=== PATIENT | female | born 1940 | race Caucasian/White ===

== ENCOUNTER 2017-03-16 00:24 | Inpatient (IN) | payer OTHER ==
--- NOTE | 2017-03-16 00:35 | PDOC ---
History of Present Illness - General History Source: EMS Exam Limitations: Dementia - History of Present Illness Initial Comments: 76 yo F with a PMHx of COPD, asthma, hypertension, dementia [facility] s/p witnessed fall at 9 PM. As per EMS, the fall occurred when patient was being transferred from chair to bed. As per EMS, patient received tylenol at 10. <Trixie Dyer - Last Filed: 03/16/17 00:39> <Rebekah Lemons - Last Filed: 03/16/17 02:40> - General Stated Complaint: FALL Time Seen by Provider: 03/16/17 00:32 Past History <Trixie Dyer - Last Filed: 03/16/17 00:39> - Past Medical History Asthma: Yes Cardiac Disorders: Yes (afib, CAD) Diabetes: Yes (GERD) HTN: Yes Hypercholesterolemia: Yes - Surgical History Cholecystectomy: Yes Orthopedic Surgery: Yes - Immunization History Immunization Up to Date: Yes - Psycho/Social/Smoking Cessation Hx Anxiety: No Suicidal Ideation: No Smoking History: Unknown if ever smoked Have you smoked in the past 12 months: No Hx Alcohol Use: No Drug/Substance Use Hx: No Substance Use Type: None Hx Substance Use Treatment: No <Rebekah Lemons - Last Filed: 03/16/17 02:40> - Past Medical History Allergies/Adverse Reactions: Allergies Allergy/AdvReac Type Severity Reaction Status Date / Time ibuprofen [From Motrin] Allergy Verified 03/16/17 00:51 Home Medications: Ambulatory Orders Apixaban [Eliquis] 5 mg PO DAILY 08/13/16 Atorvastatin Ca [Lipitor] 10 mg PO HS 08/13/16 Cholecalciferol (Vitamin D3) [Vitamin D3] 1,000 unit PO DAILY 08/13/16 Cyanocobalamin (Vitamin B-12) [Vitamin B12] 500 mcg PO DAILY 08/13/16 Divalproex [Depakote -] 125 mg PO BID 08/13/16 Folic Acid 1 mg PO DAILY 08/13/16 Furosemide [Lasix -] 20 mg PO DAILY 08/13/16 Levothyroxine [Synthroid -] 75 mcg PO DAILY 08/13/16 Omeprazole 20 mg PO DAILY 08/13/16 Prednisone [Deltasone -] 40 mg PO DAILY #8 tablet 08/13/16 Verapamil HCl [Verapamil ER] 120 mg PO DAILY 08/13/16 Review of Systems - Review of Systems Able to Perform ROS?: No (Patient has dementia. ) <Trixie Dyer - Last Filed: 03/16/17 00:39> *Physical Exam - Physical Exam Comments: GENERAL: Well developed, well nourished. Demented. No acute distress. HEENT: Normocephalic, atraumatic. PERRLA, EOMI. No conjunctival pallor. Sclera are non- icteric. Moist mucous membranes. Oropharynx is clear. NECK: Supple. Full ROM. No JVD. Carotid pulses 2+ and symmetric, without bruits. No thyromegaly. No lymphadenopathy. CARDIOVASCULAR: Regular rate and rhythm. No murmurs, rubs, or gallops. Distal pulses are 2+ and symmetric. PULMONARY: No evidence of respiratory distress. Lungs clear to auscultation bilaterally. No wheezing, rales or rhonchi. ABDOMINAL: Soft. Non-tender. Non-distended. No rebound or guarding. No organomegaly. Normoactive bowel sounds. MUSCULOSKELETAL Normal range of motion at all joints. No bony deformities or tenderness. No CVA tenderness. EXTREMITIES: No cyanosis. No clubbing. R leg externally rotated and foreshortened. Ecchymosis around her R knee and anterior leg. No calf tenderness. SKIN: Warm and dry. Normal capillary refill. No rashes. No jaundice. NEUROLOGICAL: No gross neurological deficits. PSYCHIATRIC: Cooperative. Good eye contact. Appropriate mood and affect. <Trixie Dyer - Last Filed: 03/16/17 00:39> ED Treatment Course - LABORATORY CBC & Chemistry Diagram: 03/16/17 01:32 03/16/17 01:32 <Rebekah Lemons - Last Filed: 03/16/17 02:40> Medical Decision Making - Medical Decision Making 03/16/17 02:22 76-year-old female brought in by ambulance from [facility] . [facility] as they were transferring the patient from the bed to wheelchair . Therefore it was a witnessed fall Patient is alert, primarily Occitan-speaking,history of dementia Right leg is foreshortened and externally rotated. There are good DP and PT pulses. Sensation is intact. The leg is warm. Capillary refill is less than 2 seconds Past medical history significant for dementia, CHF, diastolic, hypertension, COPD, paroxysmal A. fib, diabetes, migraines, hypothyroidism She has a previous fracture of her left hip in the past X-ray does show a right intertrochanteric hip fracture and Dr. Jose Carvalho was alerted. Patient will be admitted to [facility] -pt is on ELIQUIS and ct scan of head has been ordered and signed out to Dr Carvalho 03/16/17 02:38 <Rebekah Lemons - Last Filed: 03/16/17 02:40> *DC/Admit/Observation/Transfer - Attestations Scribe Attestion: Documentation prepared by Trixie Dyer, acting as biomedical instrument technician for Rebekah Lemons MD/DO. <Trixie Dyer - Last Filed: 03/16/17 00:39> - Discharge Dispostion Admit: Yes <Rebekah Lemons - Last Filed: 03/16/17 02:40> Diagnosis at time of Disposition: Hip fracture Qualifiers: Encounter type: initial encounter Fracture type: closed Laterality: right Qualified Code(s): S72.001A - Fracture of unspecified part of neck of right femur, initial encounter for closed fracture Type II diabetes mellitus Qualifiers: Diabetes mellitus complication status: with hyperglycemia Diabetes mellitus managed care provider insulin use: without managed care provider use Qualified Code(s): E11.65 - Type 2 diabetes mellitus with hyperglycemia - Referrals Referrals: Dex Ortiz MD [Primary Care Provider] -
[2017-03-16] MEDS ORDERED: morphine CARPU-JECT 2 MG/1 ML DISP.SYRIN IVPUSH ONE ×3 (00:42→06:21)
[2017-03-16 00:54] VITALS: BMI 26.5
[2017-03-16] MEDS ORDERED: morphine CARPU-JECT 2 MG/1 ML DISP.SYRIN ONE ×4 (01:00→18:44)
[2017-03-16 01:43] LABS: BASOPHIL 0.8 % (0-2.0); EOSINOPHIL 1.6 % (0-4.5); MCH 31.7 pg (25.7-33.7); MCHC 33.4 g/dl (32.0-36.0); MEAN CELL VOLUME 94.7 fl (80-96); MEAN PLT VOLUME 8.2 fl (7.5-11.1); NEUTROPHILS 80.1 % (42.8-82.8); PLATELET COUNT 201 K/MM3 (134-434); RDW 13.7 % (11.6-15.6); WHITE BLOOD COUNT 10.1 K/mm3 (4.0-10.0)
[2017-03-16 01:55] LABS: INR 1.24 (0.82-1.09); PROTHROMBIN TIME (PATIENT) 13.7 SEC (9.98-11.88)
[2017-03-16 02:05] LABS: ALK PHOS 125 U/L (45-117); ANION GAP 11 (8-16); BILIRUBIN,TOTAL 0.3 mg/dL (0.2-1.0); CALCIUM 8.6 mg/dL (8.5-10.1); CO2 30 mmol/L (21-32); CREATININE 0.5 mg/dL (0.55-1.02); GLUCOSE,RANDOM 130 mg/dL (74-106); SGOT/AST 14 U/L (15-37); SGPT/ALT 16 U/L (12-78)
[2017-03-16 02:16] LABS: TROPONIN I < 0.02 ng/ml (0.00-0.05)
[2017-03-16] MEDS ORDERED: ONDANSETRON 4 MG/2 ML VIAL IVPUSH STA (05:12)
[2017-03-16] MEDS ORDERED: ONDANSETRON 4 MG/2 ML VIAL ONE (05:22)
[2017-03-16 05:32] LABS: URINE APPEARANCE CLEAR; URINE BILIRUBIN NEGATIVE (NEGATIVE); URINE BLOOD NEGATIVE (NEGATIVE); URINE COLOR LTYELLOW; URINE GLUCOSE (UA) NEGATIVE (NEGATIVE); URINE KETONE NEGATIVE (NEGATIVE); URINE LEUK ESTERASE NEGATIVE (NEGATIVE); URINE NITRITE NEGATIVE (NEGATIVE); URINE PROTEIN NEGATIVE (NEGATIVE); URINE UROBILINOGEN NEGATIVE E.U./dl (0.2-1.0)
[2017-03-16] MEDS ORDERED: oxyCODONE HCL 5 MG TABLET ONE (06:04)
[2017-03-16] MEDS: oxyCODONE HCL 5 MG TABLET PO PRN (06:08)
[2017-03-16] MEDS ORDERED: morphine CARPU-JECT 4 MG/1 ML DISP.SYRIN ONE (06:23)
[2017-03-16] MEDS: SODIUM CHLORIDE 1,000 ML IV SCH ×2 (06:33→18:25)
[2017-03-16] MEDS ORDERED: LORazepam 0.5 MG TABLET PO PRN (07:44)
[2017-03-16] MEDS ORDERED: ACETAMINOPHEN 325 MG TABLET (FP) PO PRN (07:45)
[2017-03-16] MEDS: INSULIN SLIDING SCALE (NOVOLOG) 1 VIAL SQ SCH ×2 (09:59→18:31)
[2017-03-16] MEDS ORDERED: PATIENT'S OWN MEDICATION (NON-FORMULARY) (Umeclidinium Bromide [Incruse Ellipta] 62.5 MCG) IH SCH (10:00)
[2017-03-16] MEDS ORDERED: FUROSEMIDE 40 MG TABLET (FP) PO SCH (10:00)
[2017-03-16] MEDS ORDERED: LISINOPRIL 5 MG TABLET (FP) PO SCH (10:00)
[2017-03-16] MEDS: DOCUSATE SODIUM 100 MG CAPSULE (FP) PO SCH (10:01)
[2017-03-16] MEDS: DIVALPROEX SODIUM 125 MG TABLET E.C. (FP) PO SCH (10:01)
[2017-03-16] MEDS: predniSONE 5 MG TABLET (UD) PO SCH (10:01)
[2017-03-16] MEDS: guaiFENesin 200 MG/10 ML 10 ML UNIT-DOSE CUPS PO SCH (10:02)
[2017-03-16] MEDS: PANTOPRAZOLE 20 MG TABLET (FP) PO SCH (10:02)
[2017-03-16] MEDS: LEVOTHYROXINE NA 75 MCG TABLET (FP) PO SCH (10:03)
[2017-03-16] MEDS: MAG HYDROX/AL HYDROX/SIMETH 30 ML UNIT-DOSE CUP PO SCH (10:05)
--- NOTE | 2017-03-16 10:54 | CONSULT ---
Consult - text type - Consultation Consultation Note: FULL ER CONSULT DICTATED IMP: RIGHT FEMORAL NECK FRACTURE ON ELOQUIS PLAN: TO OR ON TUESDAY FOR RIGHT HIP HEMIARTHROPLASTY
--- NOTE | 2017-03-16 11:24 | HP ---
Admitting History and Physical - Primary Care Physician PCP: Dex Ortiz - Admission Chief Complaint: My leg hurts History of Present Illness: Ms Franklin is a very pleasant 76 year old female who presents from [facility] s/p fall. She says she was up walking and fell. She did not hit her head and she did not pass out. She says she has severe pain in her right leg. She denies fevers, chills, lightheadedness, dizziness, shortness of breath, abdominal pain, nausea, vomiting, diarrhea, constipation, difficulty or pain on urination. She says she has chest pain sometimes. She said the last time she felt it was last week. It is located in the right side of her chest, sharp, and felt with deep inspiration. I noted swelling of both her legs on exam and she said that it is chronic. Medical record from [facility] says patient accidentally fell when being transferred from a sitting position to the bed. 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 Cardiovascular: Yes: AFIB, CAD (unclear), HTN, Hyperlipdemia Pulmonary: Yes: Asthma - Smoking History Smoking history: Unknown if ever smoked Have you smoked in the past 12 months: No - Alcohol/Substance Use Hx Alcohol Use: No History of Substance Use: reports: None - Social History ADL: Support Services History of Recent Travel: No Home Medications - Allergies Allergies/Adverse Reactions: Allergies Allergy/AdvReac Type Severity Reaction Status Date / Time ibuprofen [From Motrin] Allergy Verified 03/16/17 00:51 - Home Medications Home Medications: Ambulatory Orders Apixaban [Eliquis] 2.5 mg PO DAILY 08/13/16 Atorvastatin Ca [Lipitor] 10 mg PO HS 08/13/16 Divalproex [Depakote -] 125 mg PO BID 08/13/16 Furosemide [Lasix -] 40 mg PO DAILY 08/13/16 Levothyroxine [Synthroid -] 75 mcg PO DAILY 08/13/16 Omeprazole 20 mg PO DAILY 08/13/16 Acetaminophen [Tylenol] 325 mg PO PRN 03/16/17 Albuterol 2.5/Ipratropium 0.5 [Duoneb -] 1 neb IH QID 03/16/17 Docusate Sodium 100 mg PO DAILY 03/16/17 Guaifenesin 100 mg PO DAILY 03/16/17 Insulin Glargine,Hum.rec.anlog [Lantus Solostar PEN (NF)] 0 units SQ HS Insulin Lispro [Humalog] 100 unit SQ DAILY MDD sliding scale 03/16/17 Levothyroxine [Synthroid -] 75 mcg PO DAILY 03/16/17 Lisinopril [Zestril] 2.5 mg PO DAILY 03/16/17 Lorazepam 0.5 mg PO PRN 03/16/17 Mag Hydrox/Al Hydrox/Simeth [Alpa-Lanta Liquid] 355 ml PO DAILY 03/16/17 Menthol [Bengay Ultra Strength] 1 each TP DAILY 03/16/17 Prednisone [Deltasone -] 2.5 mg PO DAILY 03/16/17 Tramadol HCl 50 mg PO TID 03/16/17 Umeclidinium [place] [Incruse Ellipta] 62.5 mcg IH DAILY 03/16/17 Family Disease History - Family Disease History Family History: Unable to Obtain Review of Systems Findings/Remarks: Full review of systems obtained, as per HPI and otherwise negative Physical Examination Vital Signs: Vital Signs Temperature 98.0 F 03/16/17 09:40 Pulse Rate 89 03/16/17 09:40 Respiratory Rate 18 03/16/17 09:40 Blood Pressure 110/58 03/16/17 09:40 O2 Sat by Pulse Oximetry (%) 100 03/16/17 04:00 Constitutional: Yes: Well Nourished, No Distress, Calm Eyes: Yes: Conjunctiva Clear, PERRL HENT: Yes: Atraumatic, Normocephalic Cardiovascular: Yes: Regular Rate and Rhythm. No: Gallop, Murmur, Rub Respiratory: Yes: Regular, CTA Bilaterally. No: Rales, Rhonchi, Wheezes Gastrointestinal: Yes: Normal Bowel Sounds, Soft. No: Distention, Tenderness Extremities: Yes: Other (RLE pain) Edema: Yes Edema: LLE: Trace, RLE: Trace Labs: Laboratory Results - last 24 hr 03/16/17 03/16/17 03/16/17 01:32 01:32 01:32 WBC 10.1 H D RBC 3.40 L Hgb 10.8 D Hct 32.2 L D MCV 94.7 MCHC 33.4 RDW 13.7 Plt Count 201 MPV 8.2 Neutrophils % 80.1 Lymphocytes % 9.4 D Monocytes % 8.1 Eosinophils % 1.6 Basophils % 0.8 INR Sodium 136 Potassium 4.3 Chloride 95 L Carbon Dioxide 30 Anion Gap 11 BUN 23 H Creatinine 0.5 L Creat Clearance w eGFR > 60 POC Glucometer Random Glucose 130 H D Calcium 8.6 Total Bilirubin 0.3 D AST 14 L D ALT 16 Alkaline Phosphatase 125 H D Creatine Kinase 20 L Troponin I < 0.02 Total Protein 6.0 L Albumin 3.0 L Urine Color Urine Appearance Urine pH Ur Specific Cost Urine Protein Urine Glucose (UA) Urine Ketones Urine Blood Urine Nitrite Urine Bilirubin Urine Urobilinogen Ur Leukocyte Esterase Blood Type Antibody Screen 03/16/17 03/16/17 03/16/17 01:32 01:32 03:52 WBC RBC Hgb Hct MCV MCHC RDW Plt Count MPV Neutrophils % Lymphocytes % Monocytes % Eosinophils % Basophils % INR 1.24 H Sodium Potassium Chloride Carbon Dioxide Anion Gap BUN Creatinine Creat Clearance w eGFR POC Glucometer [id number] Random Glucose Calcium Total Bilirubin AST ALT Alkaline Phosphatase Creatine Kinase Troponin I Total Protein Albumin Urine Color Urine Appearance Urine pH Ur Specific Cost Urine Protein Urine Glucose (UA) Urine Ketones Urine Blood Urine Nitrite Urine Bilirubin Urine Urobilinogen Ur Leukocyte Esterase Blood Type B POSITIVE Antibody Screen Negative 03/16/17 03/16/17 05:12 09:57 WBC RBC Hgb Hct MCV MCHC RDW Plt Count MPV Neutrophils % Lymphocytes % Monocytes % Eosinophils % Basophils % INR Sodium Potassium Chloride Carbon Dioxide Anion Gap BUN Creatinine Creat Clearance w eGFR POC Glucometer 98.99851 Random Glucose Calcium Total Bilirubin AST ALT Alkaline Phosphatase Creatine Kinase Troponin I Total Protein Albumin Urine Color Ltyellow Urine Appearance Clear Urine pH 6.0 Ur Specific Cost 1.015 Urine Protein Negative Urine Glucose (UA) Negative Urine Ketones Negative Urine Blood Negative Urine Nitrite Negative Urine Bilirubin Negative Urine Urobilinogen Negative Ur Leukocyte Esterase Negative Blood Type Antibody Screen Imaging - Results Chest X-ray: Report Reviewed, Image Reviewed Cat Scan: Report Reviewed Problem List - Problems (1) Hip fracture Assessment/Plan: -secondary to mechanical fall -seen by ortho, planning for surgery on Tuesday Code(s): S72.009A - FRACTURE OF UNSP PART OF NECK OF UNSP FEMUR, INIT Qualifiers: Encounter type: initial encounter Fracture type: closed Laterality : right Qualified Code(s): S72.001A - Fracture of unspecified part of neck of right femur, initial encounter for closed fracture (2) Type II diabetes mellitus Assessment/Plan: -diabetic diet -FSBS and SSI Code(s): E11.9 - TYPE 2 DIABETES MELLITUS WITHOUT COMPLICATIONS Qualifiers: Diabetes mellitus complication status: with hyperglycemia Diabetes mellitus usp insulin use: without rodent exterminator use Qualified Code(s): E11.65 - Type 2 diabetes mellitus with hyperglycemia; Z79.4 - alf (current ) use of insulin (3) GERD (gastroesophageal reflux disease) Assessment/Plan: -continue low dose protonix Code(s): K21.9 - GASTRO-ESOPHAGEAL REFLUX DISEASE WITHOUT ESOPHAGITIS (4) HLD (hyperlipidemia) Assessment/Plan: -continue lipitor Code(s): E78.5 - HYPERLIPIDEMIA, UNSPECIFIED (5) Atrial fibrillation Assessment/Plan: -sounds in sinus rhythm on exam -EKG ordered, follow up -holding eliquis in plans for surgery Code(s): I48.91 - UNSPECIFIED ATRIAL FIBRILLATION Qualifiers: Atrial fibrillation type: chronic Qualified Code(s): I48.2 - Chronic atrial fibrillation (6) CAD (coronary artery disease) Assessment/Plan: -with chest pain that sounds atypical -follow up ordered EKG -check second set of cardiac enzymes -consult cardiology -continue home regimen Code(s): I25.10 - ATHSCL HEART DISEASE OF [place] CORONARY ARTERY W/O ANG PCTRS (7) Hypothyroidism Assessment/Plan: -continue synthroid Code(s): E03.9 - HYPOTHYROIDISM, UNSPECIFIED
--- NOTE | 2017-03-16 13:06 | EKG ---
Test Reason : Blood Pressure : / mmHG Vent. Rate : 094 BPM Atrial Rate : 094 BPM P-R Int : 140 ms QRS Dur : 078 ms QT Int : 358 ms P-R-T Axes : 080 -41 064 degrees QTc Int : 447 ms SINUS RHYTHM WITH OCCASIONAL PREMATURE VENTRICULAR COMPLEXES LEFT AXIS DEVIATION PULMONARY DISEASE PATTERN ABNORMAL ECG WHEN COMPARED WITH ECG OF 13-AUG-2016 12:14, PREMATURE VENTRICULAR COMPLEXES ARE NOW PRESENT INCOMPLETE RIGHT BUNDLE BRANCH BLOCK IS NO LONGER PRESENT BORDERLINE CRITERIA FOR ANTEROSEPTAL INFARCT ARE NO LONGER PRESENT Confirmed by JERRICA MALDONADO, ANNIE ([id number]) on 03/16/2017 1:06:08 PM Referred By: Confirmed By:ANNIE BECERRIL MD
--- NOTE | 2017-03-16 14:16 | CONS ---
DATE OF CONSULTATION: 03/16/2017 HISTORY OF PRESENT ILLNESS: Patient is a 76-year-old female status post [facility], injuring her right hip. Patient is on Eliquis. Was transferred to [facility] where CAT scan of the head was done and x-rays of the hip which revealed a right displaced femoral neck fracture. X-rays also revealed an old left femoral neck fracture which was fixated with multiple cannulated screws. PHYSICAL EXAMINATION:Extremities: Patient's right lower extremity showing externally rotated. Marked increased pain with range of motion of the hip. Good motion of knee, ankle, and toes. Calf is soft, nontender. Pulses 2+. Neurovascularly intact. IMAGING: X-rays which I reviewed showed a displaced right femoral neck fracture. IMPRESSION: Right displaced femoral neck fracture. RECOMMENDATIONS: Patient is on Eliquis and ate today. Therefore, the procedure will not be performed today. She will get optimized by her medical doctor and we will perform her right hip hemiarthroplasty in the upcoming days. Patient is a [place] Citizen-speaking patient with a positive history of dementia. I will contact the legal medical proxy to obtain consent for this procedure. FABIENNE CROWDER M.D. [id number]
[2017-03-16] MEDS: morphine CARPU-JECT 2 MG/1 ML DISP.SYRIN IVPUSH PRN ×3 (14:50→22:20)
[2017-03-16 14:54] LABS: TROPONIN I < 0.02 ng/ml (0.00-0.05)
--- NOTE | 2017-03-16 18:12 | CON.CARD ---
Cardiology Consult (text) - Consultation Consultation Note: CC: fall 76 yo with h/o afib on eliquis, htn, hl, diastolic chf on po lasix, iddm, hypthyroid, copd, dementia who presents from [facility] s/p fall c/b hip fracture. Patient recalls fall, states was mechanical fall. Consistent with history in chart. no palps, dizziness, syncope. no cp, sob, orthopnea, pnd, le edema, bleeding, transient neurologic symptoms No recent fevers, chills, sweats, abdominal pain, nausea, vomiting, diarrhea, por po intake. + lbp. Unable to walk a flight of stairs at baseline. pmhx/PShx: per hpi social work: former smoker fam hx: + htn ros: per hpi Ambulatory Orders Apixaban [Eliquis] 2.5 mg PO DAILY 08/13/16 Atorvastatin Ca [Lipitor] 10 mg PO HS 08/13/16 Divalproex [Depakote -] 125 mg PO BID 08/13/16 Furosemide [Lasix -] 40 mg PO DAILY 08/13/16 Levothyroxine [Synthroid -] 75 mcg PO DAILY 08/13/16 Omeprazole 20 mg PO DAILY 08/13/16 Acetaminophen [Tylenol] 325 mg PO PRN 03/16/17 Albuterol 2.5/Ipratropium 0.5 [Duoneb -] 1 neb IH QID 03/16/17 Docusate Sodium 100 mg PO DAILY 03/16/17 Guaifenesin 100 mg PO DAILY 03/16/17 Insulin Glargine,Hum.rec.anlog [Lantus Solostar PEN (NF)] 0 units SQ HS Insulin Lispro [Humalog] 100 unit SQ DAILY MDD sliding scale 03/16/17 Levothyroxine [Synthroid -] 75 mcg PO DAILY 03/16/17 Lisinopril [Zestril] 2.5 mg PO DAILY 03/16/17 Lorazepam 0.5 mg PO PRN 03/16/17 Mag Hydrox/Al Hydrox/Simeth [Alpa-Lanta Liquid] 355 ml PO DAILY 03/16/17 Menthol [Bengay Ultra Strength] 1 each TP DAILY 03/16/17 Prednisone [Deltasone -] 2.5 mg PO DAILY 03/16/17 Tramadol HCl 50 mg PO TID 03/16/17 Umeclidinium [place] [Incruse Ellipta] 62.5 mcg IH DAILY 03/16/17 Current Medications Acetaminophen (Tylenol -) 325 mg PO PRN [facility] Al Hydroxide/Mg Hydroxide (Mylanta Oral Suspension -) 30 ml PO DAILY [facility] Last Admin: 03/16/17 10:05 Dose: Not Given Albuterol/Ipratropium (Duoneb -) 1 amp NEB QIDR [facility] Atorvastatin Calcium (Lipitor -) 10 mg PO HS [facility] Divalproex Sodium (Depakote -) 125 mg PO BID [facility] Last Admin: 03/16/17 10:01 Dose: 125 mg Docusate Sodium (Colace -) 100 mg PO DAILY [facility] Last Admin: 03/16/17 10:01 Dose: Not Given Furosemide (Lasix -) 40 mg PO DAILY [facility] Last Admin: 03/16/17 10:05 Dose: 40 mg Guaifenesin (Robitussin -) 10 ml PO DAILY [facility] Last Admin: 03/16/17 10:02 Dose: 10 ml Sodium Chloride (Normal Saline -) 1,000 mls @ 75 mls/hr IV ASDIR [facility] Last Admin: 03/16/17 06:33 Dose: 75 mls/hr Insulin Aspart (Novolog Vial Sliding Scale -) 1 vial SQ ACHS [facility] PRN Reason: Protocol Last Admin: 03/16/17 09:59 Dose: Not Given Levothyroxine Sodium (Synthroid -) 75 mcg PO ACBK [facility] Last Admin: 03/16/17 10:03 Dose: 75 mcg Lisinopril (Prinivil) 2.5 mg PO DAILY [facility] Last Admin: 03/16/17 10:05 Dose: 2.5 mg Lorazepam (Ativan -) 0.5 mg PO Q6H PRN PRN Reason: ANXIETY Morphine Sulfate (Morphine Injection -) 2 mg IVPUSH Q4H PRN PRN Reason: PAIN Last Admin: 03/16/17 14:50 Dose: 2 mg Non-Formulary Medication (Umeclidinium [place] [Incruse Ellipta]) 62.5 mcg IH DAILY [facility] Oxycodone HCl (Roxicodone -) 5 mg PO Q6H PRN PRN Reason: PAIN Last Admin: 03/16/17 06:08 Dose: 5 mg Pantoprazole Sodium (Protonix -) 20 mg PO DAILY [facility] Last Admin: 03/16/17 10:02 Dose: 20 mg Prednisone (Deltasone -) 2.5 mg PO DAILY [facility] Last Admin: 03/16/17 10:01 Dose: 2.5 mg Vital Signs - 24 hr 03/16/17 03/16/17 03/16/17 00:51 04:00 06:33 Temperature 97.5 F L Pulse Rate 100 H Pulse Rate [ 88 Right] Respiratory 14 20 Rate Blood Pressure 104/59 134/90 Blood Pressure 105/56 [Right] O2 Sat by Pulse 100 100 Oximetry (%) 03/16/17 03/16/17 03/16/17 06:34 09:40 10:00 Temperature 98.0 F 98.0 F Pulse Rate 89 89 Pulse Rate [ 93 H Right] Respiratory 20 18 18 Rate Blood Pressure 110/58 110/58 Blood Pressure 134/90 [Right] O2 Sat by Pulse 100 Oximetry (%) 03/16/17 14:00 Temperature 98.0 F Pulse Rate 86 Pulse Rate [ Right] Respiratory 19 Rate Blood Pressure 113/67 Blood Pressure [Right] O2 Sat by Pulse Oximetry (%) Intake & Output 03/14/17 03/15/17 03/16/17 03/17/17 07:59 07:59 07:59 07:59 Output Total 900 Balance -900 Weight 145 lb 145 lb nad, calm. lying flat jvd flat, neck supple ctab, nl effort rrr nl s1, s2 no mrg + bs soft nt nd ext with trace edema. no cyanosis or clubbing no carotid bruit no jaundice, diaphoresis CBC, BMP 03/16/17 01:32 03/16/17 01:32 Laboratory Tests 03/16/17 03/16/17 03/16/17 01:32 01:32 01:32 INR 1.24 H Total Bilirubin 0.3 D AST 14 L D ALT 16 Alkaline Phosphatase 125 H D Creatine Kinase 20 L Troponin I < 0.02 Albumin 3.0 L 03/16/17 13:45 INR Total Bilirubin AST ALT Alkaline Phosphatase Creatine Kinase 39 Troponin I < 0.02 Albumin EKG: sr with pvc. LAD. no acute ischemic changes. head CT: no acute pathology. Carotid Doppler 03/2015: no sig stenosis Echo 09/2014: normal LV/RV function, no sig valv abn Cath 12/2012: non-obstr cors 76 yo with h/o afib on eliquis, htn, hl, diastolic chf on po lasix, iddm, hypthyroid, copd, dementia who presents from [facility] [place] s/p fall c/b hip fracture. Pre-op clearance - No active cardiac issues. No need for further CV testing prior to surgyer. RCRI 2 with poor functional status. patient with intermediate-high estimated risk of siomara-operative CV events. HTN - currently bp running low. patient on low dose verapamil for rate control as outpatient per office notes. Also listed as being on low dose lisinopril and lasix. - Would hold lisinopril for now. Monitor rate off of AV shea blockade. Resume low dose verapamil if needed. Hold IVF and resume low dose IV lasix at lower dose as mentioned below dchf - no overt signs of volume overload. Would hold IVF and resume lasix at lower dose (20 qod) until bp improves. Low threshold to stop altogether. afib - currently in SR on EKG. Monitor for need to add back verapamil - AC with eliquis. Ok to hold without bridging for surgery. HL - on statin
[2017-03-16] MEDS: ATORVASTATIN CA 10 MG TABLET (FP) PO SCH (22:20)
[2017-03-17] MEDS: ALBUTEROL SO4 2.5/IPRATROPIUM 0.5 INH SOL 3 ML VIAL.NEB. NEB SCH ×5 (00:03→23:06)
[2017-03-17] MEDS: DIVALPROEX SODIUM 125 MG TABLET E.C. (FP) PO SCH ×3 (00:13→22:04)
[2017-03-17] MEDS: INSULIN SLIDING SCALE (NOVOLOG) 1 VIAL SQ SCH ×5 (00:18→22:06)
[2017-03-17] MEDS: oxyCODONE HCL 5 MG TABLET PO PRN ×2 (00:18→19:50)
[2017-03-17] MEDS: LEVOTHYROXINE NA 75 MCG TABLET (FP) PO SCH (06:49)
[2017-03-17] MEDS: morphine CARPU-JECT 2 MG/1 ML DISP.SYRIN IVPUSH PRN ×3 (06:49→16:26)
[2017-03-17 08:21] LABS: BASOPHIL 0.6 % (0-2.0); EOSINOPHIL 0.5 % (0-4.5); MCH 31.8 pg (25.7-33.7); MCHC 33.7 g/dl (32.0-36.0); MEAN CELL VOLUME 94.3 fl (80-96); MEAN PLT VOLUME 8.3 fl (7.5-11.1); NEUTROPHILS 81.3 % (42.8-82.8); PLATELET COUNT 171 K/MM3 (134-434); RDW 13.8 % (11.6-15.6); WHITE BLOOD COUNT 8.2 K/mm3 (4.0-10.0)
--- NOTE | 2017-03-17 09:16 | PN ---
Progress Note (short form) - Note Progress Note: Pt is a 76 yo F s/p fall with a displaced right hip hemiarthroplasty. She last took Eliquis on Tuesday. She is cleared by cardiology. Trying to contact Health Proxy. Plan We need final medical clearance We will con't to try to contact her Health Proxy NPO after midnight tonight She is on the OR schedule for a right hip hemiarthroplasty Tuesday
[2017-03-17 09:24] LABS: ALBUMIN 3.2 g/dl (3.4-5.0); ALK PHOS 135 U/L (45-117); ANION GAP 9 (8-16); BILIRUBIN,TOTAL 0.8 mg/dL (0.2-1.0); CALCIUM 9.3 mg/dL (8.5-10.1); CO2 34 mmol/L (21-32); CREATININE 0.5 mg/dL (0.55-1.02); GLUCOSE,RANDOM 116 mg/dL (74-106); MAGNESIUM 2.1 mg/dL (1.8-2.4); SGOT/AST 43 U/L (15-37); SGPT/ALT 62 U/L (12-78); TOT PROT 6.5 g/dl (6.4-8.2)
[2017-03-17] MEDS ORDERED: PT OWN MED DRAWER 7, Y5N ONE ×2 (09:45→21:38)
[2017-03-17] MEDS: DOCUSATE SODIUM 100 MG CAPSULE (FP) PO SCH (09:51)
[2017-03-17] MEDS: predniSONE 5 MG TABLET (UD) PO SCH (09:51)
[2017-03-17] MEDS: PANTOPRAZOLE 20 MG TABLET (FP) PO SCH (09:51)
[2017-03-17] MEDS: MAG HYDROX/AL HYDROX/SIMETH 30 ML UNIT-DOSE CUP PO SCH (09:53)
[2017-03-17] MEDS: guaiFENesin 200 MG/10 ML 10 ML UNIT-DOSE CUPS PO SCH (09:57)
--- NOTE | 2017-03-17 17:24 | PN ---
Progress Note, Physician Chief Complaint: Ms Franklin says she has hip pain. No cp, sob, n/v. - Current Medication List Current Medications: Active Medications Acetaminophen (Tylenol -) 325 mg PO DAILY PRN Al Hydroxide/Mg Hydroxide (Mylanta Oral Suspension -) 30 ml PO DAILY [facility] Last Admin: 03/17/17 09:53 Dose: Not Given Albuterol/Ipratropium (Duoneb -) 1 amp NEB QIDR [facility] Last Admin: 03/17/17 12:03 Dose: 1 amp Atorvastatin Calcium (Lipitor -) 10 mg PO HS [facility] Last Admin: 03/16/17 22:20 Dose: 10 mg Divalproex Sodium (Depakote -) 125 mg PO BID [facility] Last Admin: 03/17/17 09:51 Dose: 125 mg Docusate Sodium (Colace -) 100 mg PO DAILY [facility] Last Admin: 03/17/17 09:51 Dose: 100 mg Furosemide (Lasix -) 20 mg PO Q2D@1000 [facility] Guaifenesin (Robitussin -) 10 ml PO DAILY [facility] Last Admin: 03/17/17 09:57 Dose: 10 ml Insulin Aspart (Novolog Vial Sliding Scale -) 1 vial SQ ACHS [facility] PRN Reason: Protocol Last Admin: 03/17/17 16:33 Dose: Not Given Levothyroxine Sodium (Synthroid -) 75 mcg PO ACBK [facility] Last Admin: 03/17/17 06:49 Dose: 75 mcg Lorazepam (Ativan -) 0.5 mg PO Q6H PRN PRN Reason: ANXIETY Morphine Sulfate (Morphine Injection -) 2 mg IVPUSH Q4H PRN PRN Reason: PAIN Last Admin: 03/17/17 16:26 Dose: 2 mg Non-Formulary Medication (Umeclidinium [place] [Incruse Ellipta]) 62.5 mcg IH DAILY [facility] Oxycodone HCl (Roxicodone -) 5 mg PO Q6H PRN PRN Reason: PAIN Last Admin: 03/17/17 00:18 Dose: 5 mg Pantoprazole Sodium (Protonix -) 20 mg PO DAILY [facility] Last Admin: 03/17/17 09:51 Dose: 20 mg Prednisone (Deltasone -) 2.5 mg PO DAILY [facility] Last Admin: 03/17/17 09:51 Dose: 2.5 mg - Objective Vital Signs: Vital Signs Temperature 98.5 F 03/17/17 14:00 Pulse Rate 106 H 03/17/17 14:00 Respiratory Rate 20 03/17/17 14:00 Blood Pressure 124/57 03/17/17 14:00 O2 Sat by Pulse Oximetry (%) 99 03/17/17 09:00 Constitutional: Yes: Well Nourished, No Distress, Calm Cardiovascular: Yes: Regular Rate and Rhythm. No: Gallop, Murmur, Rub Respiratory: Yes: Regular, CTA Bilaterally. No: Rales, Rhonchi, Wheezes Gastrointestinal: Yes: Normal Bowel Sounds, Soft. No: Distention, Tenderness Extremities: Yes: WNL Edema: No Labs: CBC, BMP 03/17/17 07:45 03/17/17 07:45 INR, PTT INR 1.24 (0.82-1.09) H 03/16/17 01:32 Problem List - Problems (1) Hip fracture Code(s): S72.009A - FRACTURE OF UNSP PART OF NECK OF UNSP FEMUR, INIT Qualifiers: Encounter type: initial encounter Fracture type: closed Laterality : right Qualified Code(s): S72.001A - Fracture of unspecified part of neck of right femur, initial encounter for closed fracture (2) Type II diabetes mellitus Code(s): E11.9 - TYPE 2 DIABETES MELLITUS WITHOUT COMPLICATIONS Qualifiers: Diabetes mellitus complication status: with hyperglycemia Diabetes mellitus meterman insulin use: without meterman use Qualified Code(s): E11.65 - Type 2 diabetes mellitus with hyperglycemia; Z79.4 - long term care pharmacist (current ) use of insulin (3) GERD (gastroesophageal reflux disease) Code(s): K21.9 - GASTRO-ESOPHAGEAL REFLUX DISEASE WITHOUT ESOPHAGITIS (4) HLD (hyperlipidemia) Code(s): E78.5 - HYPERLIPIDEMIA, UNSPECIFIED (5) Atrial fibrillation Code(s): I48.91 - UNSPECIFIED ATRIAL FIBRILLATION Qualifiers: Atrial fibrillation type: chronic Qualified Code(s): I48.2 - Chronic atrial fibrillation (6) CAD (coronary artery disease) Code(s): I25.10 - ATHSCL HEART DISEASE OF [place] CORONARY ARTERY W/O ANG PCTRS (7) Hypothyroidism Code(s): E03.9 - HYPOTHYROIDISM, UNSPECIFIED Assessment/Plan (1) Hip fracture Assessment/Plan: -secondary to mechanical fall -seen by ortho, planning for surgery tomorrow -medically optimized for surgery -refer to cardiology note for cardiac evaluation Code(s): S72.009A - FRACTURE OF UNSP PART OF NECK OF UNSP FEMUR, INIT Qualifiers: Encounter type: initial encounter Fracture type: closed Laterality : right Qualified Code(s): S72.001A - Fracture of unspecified part of neck of right femur, initial encounter for closed fracture (2) Type II diabetes mellitus Assessment/Plan: -diabetic diet -FSBS and SSI Code(s): E11.9 - TYPE 2 DIABETES MELLITUS WITHOUT COMPLICATIONS Qualifiers: Diabetes mellitus complication status: with hyperglycemia Diabetes mellitus group home insulin use: without meterman use Qualified Code(s): E11.65 - Type 2 diabetes mellitus with hyperglycemia; Z79.4 - [facility] (current ) use of insulin (3) GERD (gastroesophageal reflux disease) Assessment/Plan: -continue low dose protonix Code(s): K21.9 - GASTRO-ESOPHAGEAL REFLUX DISEASE WITHOUT ESOPHAGITIS (4) HLD (hyperlipidemia) Assessment/Plan: -continue lipitor Code(s): E78.5 - HYPERLIPIDEMIA, UNSPECIFIED (5) Atrial fibrillation Assessment/Plan: -sounds in sinus rhythm on exam -EKG reviewed -holding eliquis in plans for surgery Code(s): I48.91 - UNSPECIFIED ATRIAL FIBRILLATION Qualifiers: Atrial fibrillation type: chronic Qualified Code(s): I48.2 - Chronic atrial fibrillation (6) CAD (coronary artery disease) Assessment/Plan: -cardiac enzymes negative -appreciate cardiology assistance Code(s): I25.10 - ATHSCL HEART DISEASE OF [place] CORONARY ARTERY W/O ANG PCTRS (7) Hypothyroidism Assessment/Plan: -continue synthroid Code(s): E03.9 - HYPOTHYROIDISM, UNSPECIFIED
[2017-03-17] MEDS: ATORVASTATIN CA 10 MG TABLET (FP) PO SCH (22:04)
[2017-03-17] MEDS ORDERED: INSULIN (NOVOLOG) ASPART 100 UNITS/ML 10ML VIAL ONE (22:05)
[2017-03-18] MEDS: morphine CARPU-JECT 2 MG/1 ML DISP.SYRIN IVPUSH PRN ×3 (01:50→19:50)
[2017-03-18] MEDS: oxyCODONE HCL 5 MG TABLET PO PRN ×2 (04:18→19:21)
[2017-03-18] MEDS: INSULIN SLIDING SCALE (NOVOLOG) 1 VIAL SQ SCH ×4 (06:41→21:55)
[2017-03-18] MEDS: LEVOTHYROXINE NA 75 MCG TABLET (FP) PO SCH (06:42)
[2017-03-18] MEDS: ALBUTEROL SO4 2.5/IPRATROPIUM 0.5 INH SOL 3 ML VIAL.NEB. NEB SCH ×3 (06:59→17:10)
[2017-03-18 08:25] LABS: ANION GAP 9 (8-16); CO2 32 mmol/L (21-32); GLUCOSE,RANDOM 137 mg/dL (74-106)
[2017-03-18 08:29] LABS: CALCIUM 9.2 mg/dL (8.5-10.1); CREATININE 0.4 mg/dL (0.55-1.02); MAGNESIUM 2.2 mg/dL (1.8-2.4); PHOSPHOROUS 2.5 mg/dL (2.5-4.9)
--- NOTE | 2017-03-18 08:59 | PN ---
Progress Note, Physician Chief Complaint: Rt Hip Pain s/P Fall - Current Medication List Current Medications: Active Medications Acetaminophen (Tylenol -) 325 mg PO DAILY PRN Al Hydroxide/Mg Hydroxide (Mylanta Oral Suspension -) 30 ml PO DAILY [facility] Last Admin: 03/17/17 09:53 Dose: Not Given Albuterol/Ipratropium (Duoneb -) 1 amp NEB QIDR [facility] Last Admin: 03/18/17 06:59 Dose: 1 amp Atorvastatin Calcium (Lipitor -) 10 mg PO HS [facility] Last Admin: 03/17/17 22:04 Dose: 10 mg Divalproex Sodium (Depakote -) 125 mg PO BID [facility] Last Admin: 03/17/17 22:04 Dose: 125 mg Docusate Sodium (Colace -) 100 mg PO DAILY [facility] Last Admin: 03/17/17 09:51 Dose: 100 mg Furosemide (Lasix -) 20 mg PO Q2D@1000 [facility] Guaifenesin (Robitussin -) 10 ml PO DAILY [facility] Last Admin: 03/17/17 09:57 Dose: 10 ml Insulin Aspart (Novolog Vial Sliding Scale -) 1 vial SQ ACHS [facility] PRN Reason: Protocol Last Admin: 03/18/17 06:41 Dose: Not Given Levothyroxine Sodium (Synthroid -) 75 mcg PO ACBK [facility] Last Admin: 03/18/17 06:42 Dose: Not Given Lorazepam (Ativan -) 0.5 mg PO Q6H PRN PRN Reason: ANXIETY Last Admin: 03/17/17 18:56 Dose: 0.5 mg Morphine Sulfate (Morphine Injection -) 2 mg IVPUSH Q4H PRN PRN Reason: PAIN Last Admin: 03/18/17 01:50 Dose: 2 mg Non-Formulary Medication (Umeclidinium [place] [Incruse Ellipta]) 62.5 mcg IH DAILY [facility] Oxycodone HCl (Roxicodone -) 5 mg PO Q6H PRN PRN Reason: PAIN Last Admin: 03/18/17 04:18 Dose: 5 mg Pantoprazole Sodium (Protonix -) 20 mg PO DAILY [facility] Last Admin: 03/17/17 09:51 Dose: 20 mg Prednisone (Deltasone -) 2.5 mg PO DAILY [facility] Last Admin: 03/17/17 09:51 Dose: 2.5 mg - Objective Vital Signs: Vital Signs Temperature 97.7 F 03/18/17 08:00 Pulse Rate 105 H 03/18/17 08:00 Respiratory Rate 18 03/18/17 08:00 Blood Pressure 148/59 03/18/17 08:00 O2 Sat by Pulse Oximetry (%) 98 03/18/17 08:46 General: Elderly F comfortable, not in acute distress, C/O Rt Hip Pain HEENT: Mm moist, anemia, PERRLA EOMI NECK: No JVD No Bruit CHEST: CTA B/L CVS: S1S2 R no m/g/r ABD: No Distention, Non tender Bs + EXT; Rt hip tenderness No edema feet, no calf Tenderness, Pulses + AUDIT SENIOR ASSOCIATE: AOX3 non focal Labs: CBC, BMP 03/18/17 07:04 03/18/17 07:04 INR, PTT INR 1.24 (0.82-1.09) H 03/16/17 01:32 Problem List - Problems (1) Hip fracture Assessment/Plan: Schedule for surgery , cont pain medications. Code(s): S72.009A - FRACTURE OF UNSP PART OF NECK OF UNSP FEMUR, INIT Qualifiers: Encounter type: initial encounter Fracture type: closed Laterality : right Qualified Code(s): S72.001A - Fracture of unspecified part of neck of right femur, initial encounter for closed fracture (2) Type II diabetes mellitus Assessment/Plan: On Insulin optimize Glycemic control Code(s): E11.9 - TYPE 2 DIABETES MELLITUS WITHOUT COMPLICATIONS Qualifiers: Diabetes mellitus complication status: with hyperglycemia Diabetes mellitus termite control technician insulin use: without termite control technician use Qualified Code(s): E11.65 - Type 2 diabetes mellitus with hyperglycemia; Z79.4 - parts counterman (current ) use of insulin (3) Atrial fibrillation Assessment/Plan: Rate controlled in NSR Off AC for surgery Code(s): I48.91 - UNSPECIFIED ATRIAL FIBRILLATION Qualifiers: Atrial fibrillation type: chronic Qualified Code(s): I48.2 - Chronic atrial fibrillation (4) CAD (coronary artery disease) Assessment/Plan: No active issue cont all home medication. Code(s): I25.10 - ATHSCL HEART DISEASE OF [place] CORONARY ARTERY W/O ANG PCTRS (5) Hypothyroidism Assessment/Plan: Cont Levothyroxine Code(s): E03.9 - HYPOTHYROIDISM, UNSPECIFIED (6) HLD (hyperlipidemia) Assessment/Plan: cont Statin Code(s): E78.5 - HYPERLIPIDEMIA, UNSPECIFIED (7) COPD, mild Assessment/Plan: At present asymptomatic. cont Duoneb Code(s): J44.9 - CHRONIC OBSTRUCTIVE PULMONARY DISEASE, UNSPECIFIED
[2017-03-18 09:02] LABS: BASOPHIL 0.4 % (0-2.0); EOSINOPHIL 0.3 % (0-4.5); MCH 32.1 pg (25.7-33.7); MCHC 33.6 g/dl (32.0-36.0); MEAN CELL VOLUME 95.7 fl (80-96); MEAN PLT VOLUME 8.5 fl (7.5-11.1); NEUTROPHILS 83.6 % (42.8-82.8); PLATELET COUNT 155 K/MM3 (134-434); WHITE BLOOD COUNT 8.8 K/mm3 (4.0-10.0)
[2017-03-18] MEDS ORDERED: FUROSEMIDE 20 MG TABLET (FP) PO SCH (10:00)
[2017-03-18] MEDS ORDERED: PT OWN MED DRAWER 7, Y5N ONE ×2 (10:11→20:58)
[2017-03-18] MEDS: predniSONE 5 MG TABLET (UD) PO SCH (10:20)
[2017-03-18] MEDS: DIVALPROEX SODIUM 125 MG TABLET E.C. (FP) PO SCH ×2 (10:20→21:35)
[2017-03-18] MEDS: PANTOPRAZOLE 20 MG TABLET (FP) PO SCH (10:23)
[2017-03-18] MEDS: MAG HYDROX/AL HYDROX/SIMETH 30 ML UNIT-DOSE CUP PO SCH (10:23)
[2017-03-18] MEDS: guaiFENesin 200 MG/10 ML 10 ML UNIT-DOSE CUPS PO SCH (10:23)
[2017-03-18] MEDS: DOCUSATE SODIUM 100 MG CAPSULE (FP) PO SCH (10:23)
[2017-03-18] MEDS ORDERED: BUPIVACAINE HCL/PF 0.5% (5MG/ML) 10 ML VIAL ONE (12:42)
[2017-03-18] MEDS ORDERED: PROPOFOL 20 ML ONE (13:12)
[2017-03-18] MEDS ORDERED: ceFAZolin SODIUM 1 GM VIAL IVPB ONE (13:15)
[2017-03-18] MEDS ORDERED: ceFAZolin SODIUM 1 GM VIAL ONE (14:21)
--- NOTE | 2017-03-18 14:26 | OP ---
Operative Note - Note: Operative Date: 03/18/17 ([facility]) Pre-Operative Diagnosis: right femoral neck fx Operation: right hip hemiarthroplasty Post-Operative Diagnosis: Same as Pre-op Surgeon: Jose Mcintyre Marketing Analytics Specialist: Jeremy Dumont Anesthesiologist/GENETIC COUNSELOR: Rica Hutchinson Anesthesia: Spinal, Local Specimens Removed: femoral head Estimated Blood Loss (mls): 100 Operative Report Dictated: Yes
--- NOTE | 2017-03-18 14:33 | SPEC ---
DATE OF OPERATION: 03/18/2017 OPERATION: Right hip hemiarthroplasty. PREOPERATIVE DIAGNOSIS: Right displaced femoral neck fracture. POSTOPERATIVE DIAGNOSIS: Right displaced femoral neck fracture. SURGEON: Jose Mcintyre MD PIPE COVERER HELPER: JOHN Crews ANESTHESIA: Spinal. CLOSURE: A No. 6 Accolade II stem with a standard head and a 46 bipolar, 1 Vicryl for fascia, 0 and 2 subcutaneous, 3-0 V-Loc for skin. ESTIMATED BLOOD LOSS: Less than 100 mL. COMPLICATIONS: None. CONDITION: To recovery room in stable condition. DESCRIPTION OF PROCEDURE: Patient was taken to the operating room on March 18, 2017. Anesthesia was administered by the anesthesiologist. IV Kefzol was given prophylactically prior to the case. Patient was placed in the lateral decubitus position with all prominences well padded. The right hip area was prepped and draped in the usual sterile fashion. A posterior approach was utilized to gain access to the hip. A 12- to 15-cm curved longitudinal incision over the posterior lateral aspect of the hip was incised and hemostasis achieved with Bovie cautery. Sharp dissection was carried down to the level of the fascia. The fascia was opened the entire length of the incision. The gluteus joao fibers were spread, exposing the greater trochanter. A Charnley retractor was placed in this layer and care was taken not to impale sciatic nerve. Short external rotators were detached from their insertion to the greater trochanter and peeled off the capsule. A "T" capsulotomy was then performed down to the level of the labrum. The neck was osteotomized with oscillating saw at the appropriate level. The head was measured for diameter. A trial reduction of the appropriate-sized head to see if a good suction fit. The proximal femur was prepared using a box chisel. Intramedullary as well as serial broaches until the appropriate broach achieved good fit and fill with good stability. A trial reduction with the neck and bipolar achieved equal limb lengths and was stable to yin flexion at 90 degrees of flexion, to marked adduction and internal rotation. Had a positive hang test, negative telescoping, and was stable in external rotation and extension. The trial component was removed. The real broach was then malleted into place and the real bipolar was cold-welded to the trunnion. Identical limb lengths on all planes was described earlier with trials. The hip was irrigated out with copious amounts of antibiotic irrigation. Capsule was closed using 0 Vicryl, 0-Vicryl interrupted suture for the fascia was then used, and 2-0 for the subcutaneous and 3-0 Monocryl subcuticular to the skin with skin glue. The Aquacel dressing was applied and the patient was placed in the supine position. Bilateral SCDs and abduction pillow were applied. Patient was awakened from anesthesia and transferred to the recovery room in stable condition. No complications. Estimated blood loss less than 100 mL. Danis BERTRAND/[id number]
[2017-03-18] MEDS ORDERED: ONDANSETRON 4 MG/2 ML VIAL IVPUSH PRN (14:35)
[2017-03-18] MEDS: ACETAMINOPHEN 325 MG TABLET (FP) PO PRN (19:20)
[2017-03-18] MEDS ORDERED: CEFAZOLIN (PRE-DOCKED) 50 ML IVPB SCH (21:00)
[2017-03-18] MEDS: CEFAZOLIN (PRE-DOCKED) 50 ML IVPB SCH (21:35)
[2017-03-18] MEDS: LACTATED RINGERS SOLUTION 1,000 ML IV SCH (21:53)
[2017-03-18] MEDS: ATORVASTATIN CA 10 MG TABLET (FP) PO SCH (21:54)
[2017-03-19] MEDS: ALBUTEROL SO4 2.5/IPRATROPIUM 0.5 INH SOL 3 ML VIAL.NEB. NEB SCH ×4 (00:12→18:33)
[2017-03-19] MEDS: morphine CARPU-JECT 2 MG/1 ML DISP.SYRIN IVPUSH PRN ×3 (04:18→18:44)
[2017-03-19] MEDS: CEFAZOLIN (PRE-DOCKED) 50 ML IVPB SCH (04:19)
[2017-03-19] MEDS: LACTATED RINGERS SOLUTION 1,000 ML IV SCH ×2 (05:48→14:49)
[2017-03-19] MEDS: INSULIN SLIDING SCALE (NOVOLOG) 1 VIAL SQ SCH ×4 (06:13→21:43)
[2017-03-19] MEDS: LEVOTHYROXINE NA 75 MCG TABLET (FP) PO SCH (06:13)
[2017-03-19] MEDS: oxyCODONE HCL 5 MG TABLET PO PRN ×3 (06:18→21:33)
[2017-03-19 08:34] LABS: ANION GAP 8 (8-16); CALCIUM 8.3 mg/dL (8.5-10.1); CO2 31 mmol/L (21-32); GLUCOSE,RANDOM 179 mg/dL (74-106)
[2017-03-19 08:35] LABS: CREATININE 0.3 mg/dL (0.55-1.02)
[2017-03-19 08:58] LABS: MCH 32.1 pg (25.7-33.7); MCHC 33.7 g/dl (32.0-36.0); MEAN CELL VOLUME 95.3 fl (80-96); PLATELET COUNT 106 K/MM3 (134-434); RDW 13.9 % (11.6-15.6); WHITE BLOOD COUNT 7.2 K/mm3 (4.0-10.0)
[2017-03-19] MEDS ORDERED: PT OWN MED DRAWER 7, Y5N ONE ×3 (09:11→21:28)
[2017-03-19] MEDS: MAG HYDROX/AL HYDROX/SIMETH 30 ML UNIT-DOSE CUP PO SCH (09:18)
[2017-03-19] MEDS: predniSONE 5 MG TABLET (UD) PO SCH (09:18)
[2017-03-19] MEDS: guaiFENesin 200 MG/10 ML 10 ML UNIT-DOSE CUPS PO SCH (09:18)
[2017-03-19] MEDS: PANTOPRAZOLE 20 MG TABLET (FP) PO SCH (09:21)
[2017-03-19] MEDS: DIVALPROEX SODIUM 125 MG TABLET E.C. (FP) PO SCH ×2 (09:21→21:32)
[2017-03-19] MEDS: DOCUSATE SODIUM 100 MG CAPSULE (FP) PO SCH (09:22)
[2017-03-19] MEDS ORDERED: ENOXAPARIN NA (PORCINE) 30 MG/0.3 ML DISP.SYRIN SQ SCH ×2 (10:00)
[2017-03-19] MEDS ORDERED: PATIENT'S OWN MEDICATION (NON-FORMULARY) (Umeclidinium Bromide [Incruse Ellipta] 62.5 MCG) IH SCH (10:00)
--- NOTE | 2017-03-19 11:16 | PN ---
Progress Note (short form) - Note Progress Note: POD #1 - s/p right hip hemiarthroplasty under spinal anesthesia. VSS. Pt. just received iv morphine for post-op pain control. Also receiving scheduled respiratory treatment. No apparent anesthetic complications noted. Continue current care.
--- NOTE | 2017-03-19 13:24 | PN ---
Progress Note (short form) - Note Progress Note: Patient seen and examined. S/P right arthroplasty yesterday. C/o pain at the operated site. Denies chest pain, shortness of breath, palpitation or dizziness. - Current Medication List Current Medications: Active Medications Acetaminophen (Tylenol -) 325 mg PO DAILY PRN Al Hydroxide/Mg Hydroxide (Mylanta Oral Suspension -) 30 ml PO DAILY [facility] Last Admin: 03/17/17 09:53 Dose: Not Given Albuterol/Ipratropium (Duoneb -) 1 amp NEB QIDR [facility] Last Admin: 03/18/17 06:59 Dose: 1 amp Atorvastatin Calcium (Lipitor -) 10 mg PO HS [facility] Last Admin: 03/17/17 22:04 Dose: 10 mg Divalproex Sodium (Depakote -) 125 mg PO BID [facility] Last Admin: 03/17/17 22:04 Dose: 125 mg Docusate Sodium (Colace -) 100 mg PO DAILY [facility] Last Admin: 03/17/17 09:51 Dose: 100 mg Furosemide (Lasix -) 20 mg PO Q2D@1000 [facility] Guaifenesin (Robitussin -) 10 ml PO DAILY [facility] Last Admin: 03/17/17 09:57 Dose: 10 ml Insulin Aspart (Novolog Vial Sliding Scale -) 1 vial SQ ACHS [facility] PRN Reason: Protocol Last Admin: 03/18/17 06:41 Dose: Not Given Levothyroxine Sodium (Synthroid -) 75 mcg PO ACBK [facility] Last Admin: 03/18/17 06:42 Dose: Not Given Lorazepam (Ativan -) 0.5 mg PO Q6H PRN PRN Reason: ANXIETY Last Admin: 03/17/17 18:56 Dose: 0.5 mg Morphine Sulfate (Morphine Injection -) 2 mg IVPUSH Q4H PRN PRN Reason: PAIN Last Admin: 03/18/17 01:50 Dose: 2 mg Non-Formulary Medication (Umeclidinium [place] [Incruse Ellipta]) 62.5 mcg IH DAILY [facility] Oxycodone HCl (Roxicodone -) 5 mg PO Q6H PRN PRN Reason: PAIN Last Admin: 03/18/17 04:18 Dose: 5 mg Pantoprazole Sodium (Protonix -) 20 mg PO DAILY [facility] Last Admin: 03/17/17 09:51 Dose: 20 mg Prednisone (Deltasone -) 2.5 mg PO DAILY [facility] Last Admin: 03/17/17 09:51 Dose: 2.5 mg - Objective Vital Signs: Vital Signs Period Temp Pulse Resp BP Sys/Ramos Pulse Ox Last 24 Hr 97.5 F-99.8 F 91-111 16-21 92-128/40-93 96-100 General: Elderly F comfortable, not in acute distress, C/O Rt Hip Pain HEENT: Mm moist, anemia, PERRLA EOMI NECK: No JVD No Bruit CHEST: CTA B/L CVS: S1S2 R no m/g/r ABD: No Distention, Non tender Bs + EXT; Rt hip tenderness No edema feet, no calf Tenderness, Pulses + OPERATIONS WELDER: AOX3 non focal Labs: CBC, BMP 03/19/17 08:45 03/19/17 06:40 Problem List - Problems (1) Hip fracture Assessment/Plan: S/P right arthroplasty Continue pain management. Ortho follow up appreciated. Code(s): S72.009A - FRACTURE OF UNSP PART OF NECK OF UNSP FEMUR, INIT Qualifiers: Encounter type: initial encounter Fracture type: closed Laterality : right Qualified Code(s): S72.001A - Fracture of unspecified part of neck of right femur, initial encounter for closed fracture (2) Type II diabetes mellitus Assessment/Plan: On Insulin optimize Glycemic control Code(s): E11.9 - TYPE 2 DIABETES MELLITUS WITHOUT COMPLICATIONS Qualifiers: Diabetes mellitus complication status: with hyperglycemia Diabetes mellitus long term care social worker insulin use: without nursing home use Qualified Code(s): E11.65 - Type 2 diabetes mellitus with hyperglycemia; Z79.4 - shelter (current ) use of insulin (3) Atrial fibrillation Assessment/Plan: Rate controlled. Eliquis to be resumed after clearance from ortho side. Code(s): I48.91 - UNSPECIFIED ATRIAL FIBRILLATION Qualifiers: Atrial fibrillation type: chronic Qualified Code(s): I48.2 - Chronic atrial fibrillation (4) CAD (coronary artery disease) Assessment/Plan: No active issue cont all home medication. Code(s): I25.10 - ATHSCL HEART DISEASE OF [place] CORONARY ARTERY W/O ANG PCTRS (5) Hypothyroidism Assessment/Plan: Cont Levothyroxine Code(s): E03.9 - HYPOTHYROIDISM, UNSPECIFIED (6) HLD (hyperlipidemia) Assessment/Plan: cont Statin Code(s): E78.5 - HYPERLIPIDEMIA, UNSPECIFIED (7) COPD, mild Assessment/Plan: At present asymptomatic. cont Duoneb Code(s): J44.9 - CHRONIC OBSTRUCTIVE PULMONARY DISEASE, UNSPECIFIED (8)Thrombocytopenia Will monitor closely.
[2017-03-19] MEDS: ACETAMINOPHEN 325 MG TABLET (FP) PO PRN ×3 (13:51→21:33)
[2017-03-19] MEDS: dilTIAZem HCL 30 MG TABLET (FP) PO SCH ×2 (17:57→21:32)
[2017-03-19 19:58] LABS: URINE APPEARANCE CLEAR; URINE BILIRUBIN NEGATIVE (NEGATIVE); URINE BLOOD NEGATIVE (NEGATIVE); URINE COLOR YELLOW; URINE GLUCOSE (UA) 2+ (NEGATIVE); URINE KETONE NEGATIVE (NEGATIVE); URINE LEUK ESTERASE NEGATIVE (NEGATIVE); URINE NITRITE NEGATIVE (NEGATIVE); URINE UROBILINOGEN 2.0 E.U/dl E.U./dl (0.2-1.0)
[2017-03-19 20:42] LABS: URINE PROTEIN 1+ (NEGATIVE)
[2017-03-19 20:44] LABS: URINE MUCUS RARE; URINE RBC 1 /hpf (0-3); URINE WBC 4 /hpf (3-5)
[2017-03-19] MEDS: ATORVASTATIN CA 10 MG TABLET (FP) PO SCH (21:32)
[2017-03-20] MEDS: ALBUTEROL SO4 2.5/IPRATROPIUM 0.5 INH SOL 3 ML VIAL.NEB. NEB SCH ×5 (00:20→23:05)
[2017-03-20] MEDS: morphine CARPU-JECT 2 MG/1 ML DISP.SYRIN IVPUSH PRN ×2 (02:19→21:37)
[2017-03-20] MEDS: ACETAMINOPHEN 325 MG TABLET (FP) PO PRN ×3 (05:01→17:21)
[2017-03-20] MEDS: oxyCODONE HCL 5 MG TABLET PO PRN ×3 (05:01→17:20)
[2017-03-20] MEDS: LORazepam 0.5 MG TABLET PO PRN (05:07)
[2017-03-20] MEDS: INSULIN SLIDING SCALE (NOVOLOG) 1 VIAL SQ SCH ×4 (06:13→21:39)
[2017-03-20] MEDS: LEVOTHYROXINE NA 75 MCG TABLET (FP) PO SCH (06:13)
[2017-03-20 08:20] LABS: BASOPHIL 0.3 % (0-2.0); EOSINOPHIL 1.2 % (0-4.5); MCHC 33.6 g/dl (32.0-36.0); MEAN CELL VOLUME 95.3 fl (80-96); MEAN PLT VOLUME 8.8 fl (7.5-11.1); NEUTROPHILS 77.5 % (42.8-82.8); PLATELET COUNT 104 K/MM3 (134-434); RDW 13.5 % (11.6-15.6)
[2017-03-20 08:47] LABS: ALBUMIN 2.1 g/dl (3.4-5.0); ALK PHOS 85 U/L (45-117); ANION GAP 7 (8-16); BILIRUBIN,TOTAL 0.4 mg/dL (0.2-1.0); CALCIUM 8.1 mg/dL (8.5-10.1); CO2 32 mmol/L (21-32); CREATININE 0.2 mg/dL (0.55-1.02); GLUCOSE,RANDOM 123 mg/dL (74-106); SGOT/AST 16 U/L (15-37); SGPT/ALT 19 U/L (12-78); TOT PROT 5.2 g/dl (6.4-8.2)
--- NOTE | 2017-03-20 09:03 | PN ---
Progress Note (short form) - Note Progress Note: AVSS COMFORTABLE BANDAGES DRY AND INTACT CALF SOFT AND NT NVI IMP: DOING WELL PLAN: OOB, PT, WBAT, DC PLANNING
[2017-03-20] MEDS ORDERED: FUROSEMIDE 20 MG TABLET (FP) PO SCH (10:00)
[2017-03-20] MEDS ORDERED: PT OWN MED DRAWER 7, Y5N ONE ×2 (10:30→21:29)
[2017-03-20] MEDS: predniSONE 5 MG TABLET (UD) PO SCH (10:35)
[2017-03-20] MEDS: dilTIAZem HCL 30 MG TABLET (FP) PO SCH ×4 (10:35→21:39)
[2017-03-20] MEDS: APIXABAN 2.5 MG TABLET PO SCH ×2 (10:36→21:39)
[2017-03-20] MEDS: guaiFENesin 200 MG/10 ML 10 ML UNIT-DOSE CUPS PO SCH (10:36)
[2017-03-20] MEDS: MAG HYDROX/AL HYDROX/SIMETH 30 ML UNIT-DOSE CUP PO SCH (10:36)
[2017-03-20] MEDS: DIVALPROEX SODIUM 125 MG TABLET E.C. (FP) PO SCH ×2 (10:36→21:39)
[2017-03-20] MEDS: PANTOPRAZOLE 20 MG TABLET (FP) PO SCH (10:36)
[2017-03-20] MEDS: DOCUSATE SODIUM 100 MG CAPSULE (FP) PO SCH (10:36)
--- NOTE | 2017-03-20 11:36 | PN ---
Progress Note (short form) - Note Progress Note: s: no cp sob palps dizzy o: Vital Signs Period Temp Pulse Resp BP Sys/Ramos Pulse Ox Last 24 Hr 98.2 F-101.8 F 98-128 18-24 99-118/42-60 91-97 nad, calm. lying flat jvd flat ctab, nl effort rrr nl s1, s2 no mrg + bs soft nt nd no le e/c/c no jaundice, diaphoresis awake alert appropriate Current Medications Generic Name Dose Route Start Last Admin Trade Name Freq PRN Reason Stop Dose Admin Acetaminophen 650 mg 03/19/17 14:14 03/20/17 11:01 Tylenol - PO 650 mg Q6H PRN Administration FEVER OR PAIN Al Hydroxide/Mg Hydroxide 30 ml 03/19/17 10:00 03/20/17 10:36 Mylanta Oral Suspension - PO 30 ml DAILY [facility] Administration Albuterol/Ipratropium 1 amp 03/18/17 18:00 03/20/17 06:57 Duoneb - NEB 1 amp QIDR [facility] Administration Apixaban 2.5 mg 03/20/17 10:00 03/20/17 10:36 Eliquis - PO 2.5 mg BID [facility] Administration Atorvastatin Calcium 10 mg 03/18/17 22:00 03/19/17 21:32 Lipitor - PO 10 mg HS [facility] Administration Diltiazem HCl 30 mg 03/19/17 18:00 03/20/17 10:35 Cardizem - PO 30 mg QID [facility] Administration Divalproex Sodium 125 mg 03/18/17 22:00 03/20/17 10:36 Depakote - PO 125 mg BID [facility] Administration Docusate Sodium 100 mg 03/19/17 10:00 03/20/17 10:36 Colace - PO 100 mg DAILY [facility] Administration Furosemide 20 mg 03/20/17 10:00 03/20/17 10:36 Lasix - PO 20 mg Q2D@1000 [facility] Administration Guaifenesin 10 ml 03/19/17 10:00 03/20/17 10:36 Robitussin - PO 10 ml DAILY [facility] Administration Insulin Aspart 1 vial 03/18/17 16:30 03/20/17 06:13 Novolog Vial Sliding Scale - SQ Not Given ACHS [facility] Protocol Levothyroxine Sodium 75 mcg 03/19/17 07:00 03/20/17 06:13 Synthroid - PO 75 mcg ACBK [facility] Administration Lorazepam 0.5 mg 03/18/17 14:50 03/20/17 05:07 Ativan - PO 0.5 mg Q6H PRN Administration ANXIETY Morphine Sulfate 2 mg 03/18/17 14:50 03/20/17 02:19 Morphine Injection - IVPUSH 2 mg Q4H PRN Administration PAIN Oxycodone HCl 5 mg 03/18/17 14:50 03/20/17 11:00 Roxicodone - PO 5 mg Q6H PRN Administration PAIN Pantoprazole Sodium 20 mg 03/19/17 10:00 03/20/17 10:36 Protonix - PO 20 mg DAILY [facility] Administration Prednisone 2.5 mg 03/19/17 10:00 03/20/17 10:35 Deltasone - PO 2.5 mg DAILY [facility] Administration CBC, BMP 03/20/17 06:30 03/20/17 06:30 EKG: sr with pvc. LAD. no acute ischemic changes. head CT: no acute pathology. Carotid Doppler 03/2015: no sig stenosis Echo 09/2014: normal LV/RV function, no sig valv abn Cath 12/2012: non-obstr cors a/p: 76 yo with h/o afib on eliquis, htn, hl, diastolic chf on po lasix, iddm, hypthyroid, copd, dementia who [facility] from [facility] s/p fall c/b hip fracture. HTN -bp on low side here, cont low dose ccb for rate control dchf - stable on home dose lasix 20 po qd afib - rate fast at times so added back low dose dilt with improvement in HR - cont AC with eliquis. HL - on statin hip fx: -doing well s/p hip surgery
[2017-03-20] MEDS ORDERED: POLYETHYLENE GLYCOL 3350 119 GM BTL PO PRN (15:20)
--- NOTE | 2017-03-20 15:55 | PN ---
Progress Note (short form) - Note Progress Note: No acute event since yesterday. HR better controlled after addition of cardizem. S/P right arthroplasty POD #2 Denies chest pain, shortness of breath, palpitation or dizziness. Current Medications Acetaminophen (Tylenol -) 650 mg PO Q6H PRN PRN Reason: FEVER OR PAIN Last Admin: 03/20/17 11:01 Dose: 650 mg Al Hydroxide/Mg Hydroxide (Mylanta Oral Suspension -) 30 ml PO DAILY [facility] Last Admin: 03/20/17 10:36 Dose: 30 ml Albuterol/Ipratropium (Duoneb -) 1 amp NEB QIDR [facility] Last Admin: 03/20/17 11:45 Dose: 1 amp Apixaban (Eliquis -) 2.5 mg PO BID [facility] Last Admin: 03/20/17 10:36 Dose: 2.5 mg Atorvastatin Calcium (Lipitor -) 10 mg PO HS [facility] Last Admin: 03/19/17 21:32 Dose: 10 mg Diltiazem HCl (Cardizem -) 30 mg PO QID [facility] Stop: 03/20/17 23:00 Last Admin: 03/20/17 14:16 Dose: 30 mg Diltiazem HCl (Cardizem Cd -) 120 mg PO DAILY [facility] Divalproex Sodium (Depakote -) 125 mg PO BID [facility] Last Admin: 03/20/17 10:36 Dose: 125 mg Docusate Sodium (Colace -) 200 mg PO DAILY [facility] Furosemide (Lasix -) 20 mg PO Q2D@1000 [facility] Last Admin: 03/20/17 10:36 Dose: 20 mg Guaifenesin (Robitussin -) 10 ml PO DAILY [facility] Last Admin: 03/20/17 10:36 Dose: 10 ml Insulin Aspart (Novolog Vial Sliding Scale -) 1 vial SQ ACHS [facility] PRN Reason: Protocol Last Admin: 03/20/17 11:40 Dose: Not Given Levothyroxine Sodium (Synthroid -) 75 mcg PO ACBK [facility] Last Admin: 03/20/17 06:13 Dose: 75 mcg Lorazepam (Ativan -) 0.5 mg PO Q6H PRN PRN Reason: ANXIETY Last Admin: 03/20/17 05:07 Dose: 0.5 mg Morphine Sulfate (Morphine Injection -) 2 mg IVPUSH Q4H PRN PRN Reason: PAIN Last Admin: 03/20/17 02:19 Dose: 2 mg Oxycodone HCl (Roxicodone -) 5 mg PO Q6H PRN PRN Reason: PAIN Last Admin: 03/20/17 11:00 Dose: 5 mg Pantoprazole Sodium (Protonix -) 20 mg PO DAILY [facility] Last Admin: 03/20/17 10:36 Dose: 20 mg Polyethylene Glycol (Miralax (For Daily Use) -) 17 gm PO DAILY PRN PRN Reason: CONSTIPATION Prednisone (Deltasone -) 2.5 mg PO DAILY [facility] Last Admin: 03/20/17 10:35 Dose: 2.5 mg Senna (Senna -) 2 tab PO HS [facility] - Objective Vital Signs: Vital Signs Period Temp Pulse Resp BP Sys/Ramos Pulse Ox Last 24 Hr 97.9 F-98.9 F 98-111 17-20 99-114/42-60 91-97 General: Elderly F comfortable, not in acute distress, C/O Rt Hip Pain HEENT: Mm moist, anemia, PERRLA EOMI NECK: No JVD No Bruit CHEST: CTA B/L CVS: S1S2 R no m/g/r ABD: No Distention, Non tender Bs + EXT; Rt hip tenderness No edema feet, no calf Tenderness, Pulses + SUPERVISOR RESPIRATORY: AOX3 non focal Labs: CBC, BMP 03/20/17 06:30 03/20/17 06:30 Problem List - Problems (1) Hip fracture Assessment/Plan: S/P right arthroplasty POD #2 Continue pain management. Ortho follow up appreciated. Code(s): S72.009A - FRACTURE OF UNSP PART OF NECK OF UNSP FEMUR, INIT Qualifiers: Encounter type: initial encounter Fracture type: closed Laterality : right Qualified Code(s): S72.001A - Fracture of unspecified part of neck of right femur, initial encounter for closed fracture (2) Type II diabetes mellitus Assessment/Plan: Continue ISS. Code(s): E11.9 - TYPE 2 DIABETES MELLITUS WITHOUT COMPLICATIONS Qualifiers: Diabetes mellitus complication status: with hyperglycemia Diabetes mellitus [facility] insulin use: without [facility] use Qualified Code(s): E11.65 - Type 2 diabetes mellitus with hyperglycemia; Z79.4 - longterm (current ) use of insulin (3) Atrial fibrillation Assessment/Plan: Slightly tachy but improved as compared to yesterday. Continue diltiazem as ordered by cardiology. Continue Eliquis 2.5 mg BID. Code(s): I48.91 - UNSPECIFIED ATRIAL FIBRILLATION Qualifiers: Atrial fibrillation type: chronic Qualified Code(s): I48.2 - Chronic atrial fibrillation (4) CAD (coronary artery disease) Assessment/Plan: Stable. Continue current meds. Code(s): I25.10 - ATHSCL HEART DISEASE OF [place] CORONARY ARTERY W/O ANG PCTRS (5) Hypothyroidism Assessment/Plan: Cont Levothyroxine current dose. Code(s): E03.9 - HYPOTHYROIDISM, UNSPECIFIED (6) HLD (hyperlipidemia) Assessment/Plan: cont Statin Code(s): E78.5 - HYPERLIPIDEMIA, UNSPECIFIED (7) COPD, mild Assessment/Plan: At present asymptomatic Continue inhaled bronchodilators. Code(s): J44.9 - CHRONIC OBSTRUCTIVE PULMONARY DISEASE, UNSPECIFIED (8)Thrombocytopenia 106>104 Will monitor closely. (9) Hyponatremia Poor PO intake. Encourage PO fluid intake.
[2017-03-20 17:04] LABS: URINE APPEARANCE CLEAR; URINE BILIRUBIN NEGATIVE (NEGATIVE); URINE BLOOD NEGATIVE (NEGATIVE); URINE COLOR YELLOW; URINE GLUCOSE (UA) NEGATIVE (NEGATIVE); URINE KETONE TRACE (NEGATIVE); URINE NITRITE NEGATIVE (NEGATIVE); URINE PROTEIN NEGATIVE (NEGATIVE); URINE UROBILINOGEN NEGATIVE E.U./dl (0.2-1.0)
[2017-03-20 17:06] LABS: URINE LEUK ESTERASE TRACE (NEGATIVE)
[2017-03-20 17:09] LABS: URINE BACTERIA FEW /hpf (NONE SEEN); URINE MUCUS RARE; URINE RBC 8 /hpf (0-3); URINE WBC 6 /hpf (3-5)
[2017-03-20] MEDS: ATORVASTATIN CA 10 MG TABLET (FP) PO SCH (21:33)
[2017-03-20] MEDS ORDERED: SENNOSIDES 8.6MG TABLET (FP) PO SCH (22:00)
[2017-03-21] MEDS: LORazepam 0.5 MG TABLET PO PRN (05:07)
[2017-03-21] MEDS: morphine CARPU-JECT 2 MG/1 ML DISP.SYRIN IVPUSH PRN (05:07)
[2017-03-21] MEDS: INSULIN SLIDING SCALE (NOVOLOG) 1 VIAL SQ SCH ×2 (06:29→11:27)
[2017-03-21] MEDS: LEVOTHYROXINE NA 75 MCG TABLET (FP) PO SCH (06:30)
[2017-03-21] MEDS: ALBUTEROL SO4 2.5/IPRATROPIUM 0.5 INH SOL 3 ML VIAL.NEB. NEB SCH ×2 (06:50→11:20)
--- NOTE | 2017-03-21 09:16 | PN ---
Progress Note (short form) - Note Progress Note: Ortho Pt seen and examined s/p right hip lizeth Selected Entries 03/21/17 05:59 Temperature 99.5 F Pulse Rate 103 H Respiratory 21 Rate Blood Pressure 105/54 Laboratory Tests 03/20/17 06:30 WBC 6.0 Hgb 9.2 L Hct 27.3 L Plt Count 104 L dressing c/d/i, calf soft, nt nvi a/p PT hip precautions dvt ppx pain control d/c planning
[2017-03-21] MEDS ORDERED: DOCUSATE SODIUM 100 MG CAPSULE (FP) PO SCH (10:00)
[2017-03-21] MEDS ORDERED: PT OWN MED DRAWER 7, Y5N ONE (10:38)
[2017-03-21] MEDS: predniSONE 5 MG TABLET (UD) PO SCH (10:44)
[2017-03-21] MEDS: MAG HYDROX/AL HYDROX/SIMETH 30 ML UNIT-DOSE CUP PO SCH (10:44)
[2017-03-21] MEDS: guaiFENesin 200 MG/10 ML 10 ML UNIT-DOSE CUPS PO SCH (10:44)
[2017-03-21] MEDS: DIVALPROEX SODIUM 125 MG TABLET E.C. (FP) PO SCH (10:49)
[2017-03-21] MEDS: APIXABAN 2.5 MG TABLET PO SCH (10:49)
[2017-03-21] MEDS: PANTOPRAZOLE 20 MG TABLET (FP) PO SCH (10:50)
--- NOTE | 2017-03-21 11:21 | DS ---
Physical Exam: SUBJECTIVE: Patient seen and examined for Dr. Ortiz/Tyra. She is sitting up in the w/c with abductor pillow in place without any distress and daughter in law in with pt OBJECTIVE: Vital Signs Period Temp Pulse Resp BP Sys/Ramos Pulse Ox Last 24 Hr 97.8 F-99.5 F 90-115 17-21 103-120/50-58 92 PHYSICAL EXAM GENERAL: The patient is awake, alert, in no acute distress. HEAD: Normal with no signs of trauma. EYES: PERRL, NECK: Trachea midline, full range of motion, supple. LUNGS: Breath sounds equal, clear to auscultation bilaterally, no wheezes, no crackles, no accessory muscle use. HEART: AF ABDOMEN: Soft, nontender, : had some urinary retention without UTI, caceres in place draining well. Will remain in and follow up at custodial EXTREMITIES: 2+ pulses, warm, well-perfused, no edema. PSYCH: Normal mood, normal affect. SKIN: Warm, dry, normal turgor, no rashes or lesions noted. Hip surgical incision LABS Laboratory Results - last 24 hr 03/20/17 03/20/17 03/20/17 11:38 15:50 16:48 POC Glucometer 196 212 Urine Color Yellow Urine Appearance Clear Urine pH 7.0 D Ur Specific [place] 1.015 Urine Protein Negative Urine Glucose (UA) Negative Urine Ketones Trace H Urine Blood Negative Urine Nitrite Negative Urine Bilirubin Negative Urine Urobilinogen Negative Ur Leukocyte Esterase Trace H Urine RBC 8 Urine WBC 6 Ur Epithelial Cells Few Urine Bacteria Few Urine Mucus Rare 03/20/17 03/21/17 21:32 06:28 POC Glucometer 191 154 Urine Color Urine Appearance Urine pH Ur Specific [place] Urine Protein Urine Glucose (UA) Urine Ketones Urine Blood Urine Nitrite Urine Bilirubin Urine Urobilinogen Ur Leukocyte Esterase Urine RBC Urine WBC Ur Epithelial Cells Urine Bacteria Urine Mucus HOSPITAL COURSE: Date of Admission:03/16/17 Date of Discharge: 03/21/17 This 76 yr old female with an acute right hip fx with surgical repair is scheduled today for discharge. Pt was at [facility] for pulmonary rehab prior to coming in to [facility]. Pt fell while in [facility] and landing on her right hip causing a hip fracture. She was brought in to ER via EMS and found to have a right femur head fx. She has a significant hx of AF on Eliquis which needed to be on hold for a days prior to surgical intervention with Dr. Mcintyre service for a hemiannulaplasty. On 03/18 Pt was medically cleared as well as cardiac clearance for surgical intervention. She did well post op from hip repair. Currently pt is back on Eliquis, hip is healing well and will be slotted for discharge to either back to [facility] or other arrangements with Director Of Customer Acquisition and family. Minutes to complete discharge: 40 Discharge Summary Reason For Visit: RIGHT HIP FX Current Active Problems Hip fracture (Acute) Type II diabetes mellitus (Acute) Condition: Stable - Instructions Diet, Activity, Other Instructions: Resume ADA diet Continue with abductor pillow in place and OOB daily Follow up with Dr. Mcintyre regarding Weight bear status. Follow up in Dr. Mcintyre office in one week for evaluation of surgical right hip site Follow up with Dr. Carvalho/Angel office in one week Keep the right hip incision site clean dry and intact. Any sign of infection please contact Dr. Mcintyre/Dr. Ortiz immediately Caceres placed 03/20 for urinary retention and draining well. No sign of UTI currently. Will leave in for now and once mobile would suggest to trial of void (TOV) For any signs of infection, such as , elevated heart rate, elevated respiratory rate/shortness of breath, fever rectally over 100, redness or erythema to the surgical site with foul odor or drainage, increase pain, change in mental status, or elevated white count contact PMD office or report to ER. Referrals: Dex Ortiz MD [Primary Care Provider] - Disposition: [facility]USTODIAL FACILITY - Home Medications Comprehensive Discharge Medication List: Ambulatory Orders Apixaban [Eliquis] 2.5 mg PO DAILY 08/13/16 Atorvastatin Ca [Lipitor] 10 mg PO HS 08/13/16 Divalproex [Depakote -] 125 mg PO BID 08/13/16 Furosemide [Lasix -] 40 mg PO DAILY 08/13/16 Levothyroxine [Synthroid -] 75 mcg PO DAILY 08/13/16 Omeprazole 20 mg PO DAILY 08/13/16 Acetaminophen [Tylenol] 325 mg PO PRN 03/16/17 Albuterol 2.5/Ipratropium 0.5 [Duoneb -] 1 neb IH QID 03/16/17 Docusate Sodium 100 mg PO DAILY 03/16/17 Guaifenesin 100 mg PO DAILY 03/16/17 Insulin Glargine,Hum.rec.anlog [Lantus Solostar PEN (NF)] 0 units SQ HS Insulin Lispro [Humalog] 100 unit SQ DAILY MDD sliding scale 03/16/17 Levothyroxine [Synthroid -] 75 mcg PO DAILY 03/16/17 Lisinopril [Zestril] 2.5 mg PO DAILY 03/16/17 Lorazepam 0.5 mg PO PRN 03/16/17 Mag Hydrox/Al Hydrox/Simeth [Alpa-Lanta Liquid] 355 ml PO DAILY 03/16/17 Menthol [Bengay Ultra Strength] 1 each TP DAILY 03/16/17 Prednisone [Deltasone -] 2.5 mg PO DAILY 03/16/17 Tramadol HCl 50 mg PO TID 03/16/17 Umeclidinium [place] [Incruse Ellipta] 62.5 mcg IH DAILY 03/16/17 Problem List - Problems (1) Hip fracture Code(s): S72.009A - FRACTURE OF UNSP PART OF NECK OF UNSP FEMUR, INIT Qualifiers: Encounter type: initial encounter Fracture type: closed Laterality : right Qualified Code(s): S72.001A - Fracture of unspecified part of neck of right femur, initial encounter for closed fracture (2) Type II diabetes mellitus Code(s): E11.9 - TYPE 2 DIABETES MELLITUS WITHOUT COMPLICATIONS Qualifiers: Diabetes mellitus complication status: with hyperglycemia Diabetes mellitus snf insulin use: without local intermodal truck driver use Qualified Code(s): E11.65 - Type 2 diabetes mellitus with hyperglycemia; Z79.4 - exterminator (current ) use of insulin This patient is new to me today: Yes Date on this admission: 03/21/17 Emergency Visit: No Critical Care patient: No - Discharge Referral Referred to [facility] Med P.C.: No
[2017-03-21 14:46] VITALS: BP 114/60; PULSE 107; TEMP 98.7
--- NOTE | 2017-03-22 13:56 | PATH ---
Surgical Pathology Report Patient Name: DEVENDRA ORNELAS [facility]. Rec. #: [id number] /Age/Gender: 1940 (Age: 76) / F Account: [id number] Location: [address] [place] [address]/[facility] Taken: 03/18/2017 Received: 03/21/2017 Reported: 03/22/2017 Physicians: Jose Mcintyre M.D. Specimen(s) Received RIGHT FEMORAL HEAD Clinical History Right femoral neck fracture Final Diagnosis FEMORAL HEAD, RIGHT, ARTHROPLASTY: BONE WITH FOCAL NECROSIS AND HEMORRHAGE CONSISTENT WITH FRACTURE SITE. Electronically Signed Tramaine Donovan M.D. Gross Description Received in formalin, labeled "bone right femoral head" is a 4.2 x 4.2 x 3.8 cm femoral head with no femoral neck attached. The margin of resection is red-brown, jagged and hemorrhagic. No areas of eburnation are identified. The articular surface is aldrich and focally granular. The underlying trabecular bone is aldrich-yellow, heterogeneous and focally hemorrhagic. A financial sales representative section is submitted in one cassette, following decalcification. /03/21/2017 [facility]03/21/2017
== END 2017-03-21 17:06 | DRG 470 ==
LOC: JER 00:24 → JERBED 02:16 → UNDOADMIN 04:08 → JERBED 10:07 → J6S 19:06
PROVIDERS: ADMIT Specialist; ATTEND Nurse Practitioner Family
PROC: 0SRR0JZ Replacement of Right Hip Joint, Femoral Surface with Synthetic Substitute, Open Approach (ICD-10-PCS; principal; 2017-03-18 12:00)
DX: S72.011A Unspecified intracapsular fracture of right femur, initial encounter for closed fracture (principal); I50.30 Unspecified diastolic (congestive) heart failure; W18.39XA Other fall on same level, initial encounter; Y93.9 Activity, unspecified; Y92.122 Bedroom in nursing home as the place of occurrence of the external cause; J44.9 Chronic obstructive pulmonary disease, unspecified; K21.9 Gastro-esophageal reflux disease without esophagitis; I25.10 Atherosclerotic heart disease of native coronary artery without angina pectoris; E03.9 Hypothyroidism, unspecified; I48.0 Paroxysmal atrial fibrillation; Z79.01 Long term (current) use of anticoagulants; E11.65 Type 2 diabetes mellitus with hyperglycemia; F03.90 Unspecified dementia, unspecified severity, without behavioral disturbance, psychotic disturbance, mood disturbance, and anxiety; I11.0 Hypertensive heart disease with heart failure; Z79.4 Long term (current) use of insulin; D69.6 Thrombocytopenia, unspecified
CPT/HCPCS: 36415; 70450-TC; 71010-TC; 73502-TC-RT; 73523-TC; 80048; 80053; 81003; 81015; 82550; 83735; 84100; 84484; 85025; 85027; 85610; 86850; 86900; 86901; 87040; 87086; 88305-TC; 88311-TC; 93005; 93010; 94640; 94760; 97116-GP; 97161-GP; 99282-25

== ENCOUNTER 2017-03-24 00:57 | Emergency (ER) | payer OTHER ==
[2017-03-24] MEDS ORDERED: ALBUTEROL SO4 2.5/IPRATROPIUM 0.5 INH SOL 3 ML VIAL.NEB. NEB ONE (02:21)
--- NOTE | 2017-03-24 02:21 | PDOC ---
History of Present Illness - General Chief Complaint: Pain Stated Complaint: PAIN,RT HIP Time Seen by Provider: 03/24/17 01:40 - History of Present Illness Initial Comments: 03/24/17 02:21 CHIEF COMPLAINT: R hip pain HISTORY OF PRESENT ILLNESS: 76 yo F with a PMH of afib (on Eliquis) COPD, asthma , CHF, HTN, dementia BIBEMS from [facility] for R hip pain s/p hip surgery. Per notes from covering MD at [facility] patient has been on Tramadol for the past few days with pain relief, but today she continued to complain of pain despite Tramadol. Patient was given oxycodone at [facility] with relief of pain. PAST MEDICAL HISTORY: Denies past medical history FAMILY HISTORY: Denies SURGICAL HISTORY: recent hip surgery ALLERGIES: No known drug allergies REVIEW OF SYSTEMS - patient c/o pain but confused and unable to complete interview secondary to dementia PHYSICAL EXAM General Appearance: Well-appearing, appropriately dressed. No apparent distress. HEENT: EOMI, PERRLA, normal ENT inspection, normal voice, TMs normal, pharynx normal. No conjunctival pallor. No photophobia, scleral icterus. Respiratory/Chest: Patient with diffuse wheezing b/l with increased work of breathing. Cardiovascular: RRR. S1, S2. No JVD, murmur, bradycardia, tachycardia. Vascular Pulses: Dorsalis-Pedis (R): 1+, Dorsalis-Pedis (L): 2+ Gastrointestinal/Abdominal: Normal bowel sounds. Abdomen soft, non-distended. No tenderness or rebound tenderness. No organomegaly, pulsatile mass, guarding , hernia, hepatomegaly, splenomegaly. Musculoskeletal/Extremities: R leg mildly erythematous and edematous when compared to left. Marked tenderness to R thigh and hip. Integumentary: Appropriate color, dry, warm. No cyanosis, erythema, jaundice or rash Neurologic: Unable to assess, patient confused secondary to dementia. No appreciable EOM palsy, facial droop or sensory deficit. 03/24/17 03:50 Past History - Past Medical History Allergies/Adverse Reactions: Allergies Allergy/AdvReac Type Severity Reaction Status Date / Time ibuprofen [From Motrin] Allergy Verified 03/24/17 01:13 levofloxacin [From Levaquin] Allergy Verified 03/24/17 01:19 Home Medications: Ambulatory Orders Acetaminophen [Tylenol] 650 mg PO QID PRN 03/24/17 Albuterol 2.5/Ipratropium 0.5 [Duoneb -] 1 neb IH QID 03/24/17 Apixaban [Eliquis -] 2.5 mg PO BID 03/24/17 Atorvastatin Calcium [Lipitor] 30 ml PO Q6H PRN 03/24/17 Divalproex [Depakote -] 125 mg PO BID 03/24/17 Docusate Sodium [Colace -] 100 mg PO HS 03/24/17 Furosemide [Lasix -] 40 mg PO DAILY 03/24/17 Guaifenesin 100 mg PO DAILY 03/24/17 Insulin Glargine,Hum.rec.anlog [Lantus Solostar PEN (NF)] 4 units SQ HS Insulin Lispro [Humalog] 100 unit SQ TID 03/24/17 Levothyroxine [Synthroid -] 75 mcg PO DAILY 03/24/17 Lisinopril [Zestril] 2.5 mg PO DAILY 03/24/17 Lorazepam [Ativan] 0.5 mg PO QID PRN 03/24/17 Mag Hydrox/Al Hydrox/Simeth [Alpa-Lanta Liquid] 30 ml PO Q6H PRN 03/24/17 Methyl Salicylate/Menth/Camph [Bengay Ultra Strength Crm] 57 gm TP DAILY Omeprazole Magnesium [Prilosec] 20 mg PO DAILY 03/24/17 Oxycodone HCl 5 mg PO ONCE 03/24/17 Prednisone [Deltasone -] 2.5 mg PO DAILY 03/24/17 Tamsulosin HCl [Flomax] 0.4 mg PO DAILY 03/24/17 Asthma: Yes Cardiac Disorders: Yes (afib, CAD) COPD: Yes CHF: Yes Dementia: Yes Diabetes: Yes HTN: Yes Hypercholesterolemia: Yes - Surgical History Abdominal Surgery: Yes Cholecystectomy: Yes Neurologic Surgery: Yes (rt hip repair) Orthopedic Surgery: Yes - Immunization History Immunization Up to Date: Yes - Psycho/Social/Smoking Cessation Hx Anxiety: No Suicidal Ideation: No Smoking History: Unknown if ever smoked Have you smoked in the past 12 months: No Hx Alcohol Use: No Drug/Substance Use Hx: No Substance Use Type: None Hx Substance Use Treatment: No *Physical Exam - Vital Signs Last Vital Signs Temp Pulse Resp BP Pulse Ox 98.2 F 82 18 110/68 97 03/24/17 01:22 03/24/17 01:22 03/24/17 01:22 03/24/17 01:22 03/24/17 01:22 ED Treatment Course - LABORATORY CBC & Chemistry Diagram: 03/24/17 02:59 03/24/17 03:00 Medical Decision Making - Medical Decision Making 03/24/17 03:54 76 yo F with a PMHx of afib (on Eliquis) COPD, asthma, CHF, hypertension, dementia BIBEMS from [facility] for R hip pain s/p hip surgery. Patient with diffuse wheezing b/l with increased work of breathing, concern for CHF exacerbation vs pneumonia. -Duoneb -CBC, CMP, PT/INR, D-dimer -EKG, CXR CXR with mildly increased haziness to LLL. Patient with mildly erythematous R leg with decreased R pedal pulse in comparison to L, concern for DVT. D-dimer 900+. Will await ultrasound team in morning to r/o DVT. -Lovenox BNP - >5000, increased from ~1000 from last visit -40 Lasix IVPUSH Case discussed in detail with oncoming emergency provider including history, physical exam and ancillary studies. In brief, this patient is being seen in the ED for a chief complaint of: R leg pain. I have reviewed the following results: Labs Pending results: Ultrasound Please call the PCP: Angel Plan for disposition as follows: Oncoming ANCELMO Pearson has assumed care for the patient and will complete the evaluation and treatment. *DC/Admit/Observation/Transfer Diagnosis at time of Disposition: Postoperative pain of extremity - Discharge Dispostion Disposition: [facility] F[facility] Condition at time of disposition: Stable - Referrals Referrals: Dex Ortiz MD [Primary Care Provider] - - Patient Instructions Printed Discharge Instructions: DI for Postoperative Pain Additional Instructions: Return to long term Continue all medications as previously prescribed by Dr. Mcintyre and Dr. Ortiz
--- NOTE | 2017-03-24 02:23 | PDOC ---
*Physical Exam - Vital Signs Last Vital Signs Temp Pulse Resp BP Pulse Ox 98.2 F 82 18 110/68 97 03/24/17 01:22 03/24/17 01:22 03/24/17 01:22 03/24/17 01:22 03/24/17 01:22 ED Treatment Course - LABORATORY CBC & Chemistry Diagram: 03/24/17 02:59 03/24/17 03:00 Medical Decision Making - Medical Decision Making 03/24/17 02:23 agree with care from MARKELL Toure *DC/Admit/Observation/Transfer Diagnosis at time of Disposition: Postoperative pain of extremity - Discharge Dispostion Disposition: HOME Condition at time of disposition: Stable - Referrals Referrals: Dex Ortiz MD [Primary Care Provider] - - Patient Instructions Printed Discharge Instructions: DI for Postoperative Pain Additional Instructions: [facility] to [facility] Continue all medications as previously prescribed by Dr. Mcintyre and Dr. Ortiz
[2017-03-24 03:05] LABS: BASOPHIL 0.3 % (0-2.0); EOSINOPHIL 6.5 % (0-4.5); MCHC 32.4 g/dl (32.0-36.0); MEAN CELL VOLUME 95.9 fl (80-96); NEUTROPHILS 75.9 % (42.8-82.8); PLATELET COUNT 175 K/MM3 (134-434); RDW 14.1 % (11.6-15.6); WHITE BLOOD COUNT 5.2 K/mm3 (4.0-10.0)
[2017-03-24 03:30] LABS: ALBUMIN 2.4 g/dl (3.4-5.0); ANION GAP 5 (8-16); CALCIUM 8.9 mg/dL (8.5-10.1); CO2 34 mmol/L (21-32); CREATININE 0.4 mg/dL (0.55-1.02); GLUCOSE,RANDOM 133 mg/dL (74-106); SGOT/AST 22 U/L (15-37); SGPT/ALT 25 U/L (12-78)
[2017-03-24 03:31] LABS: INR 1.22 (0.82-1.09); PROTHROMBIN TIME (PATIENT) 13.5 SEC (9.98-11.88)
[2017-03-24 03:35] LABS: ALK PHOS 97 U/L (45-117); BILIRUBIN,TOTAL 0.4 mg/dL (0.2-1.0); TROPONIN I < 0.02 ng/ml (0.00-0.05)
[2017-03-24] MEDS ORDERED: ENOXAPARIN NA (PORCINE) 40 MG/0.4 ML DISP.SYRIN SQ ONE ×2 (03:55→04:06)
[2017-03-24] MEDS ORDERED: FUROSEMIDE 40 MG/4 ML INJECTABLE VIAL IVPUSH ONE (04:44)
[2017-03-24] MEDS ORDERED: FUROSEMIDE 40 MG/4 ML INJECTABLE VIAL ONE (05:28)
--- NOTE | 2017-03-24 09:44 | PDOC ---
*Physical Exam - Vital Signs Last Vital Signs Temp Pulse Resp BP Pulse Ox 97.7 F 103 H 20 107/57 98 03/24/17 07:50 03/24/17 07:50 03/24/17 07:50 03/24/17 07:50 03/24/17 07:50 - Physical Exam General Appearance: Yes: Nourished, Appropriately Dressed. No: Apparent Distress HEENT: positive: EVIE, Normal ENT Inspection Neck: negative: Tender Respiratory/Chest: negative: Lungs Clear (distress sounds bilaterally, but no obvious), Respiratory Distress Cardiovascular: positive: Regular Rhythm Extremity: positive: Other (ling right hip scar, no evidence of cellulitis, however has extensive bruising and primarily depended with tenderness to touch to this bruising area. No evidence of cellulitis, pedal pulses diminished to right leg) Integumentary: positive: Warm, Pale, Swelling (right hip), Bruising Neurologic: positive: Alert, Normal Mood/Affect (operative, answers some questions appropriately but not oriented this is her baseline), Normal Response. negative: Motor Strength 5/5 (weakened but not and equal) ED Treatment Course - LABORATORY CBC & Chemistry Diagram: 03/24/17 02:59 03/24/17 03:00 - ADDITIONAL ORDERS Additional order review: Laboratory Results 03/24/17 03/24/17 03/24/17 04:10 03:00 03:00 INR D-Dimer Sodium 138 Potassium 4.6 Chloride 99 Carbon Dioxide 34 H Anion Gap 5 L BUN 21 H D Creatinine 0.4 L D Creat Clearance w eGFR > 60 Random Glucose 133 H Lactic Acid 1.3 Calcium 8.9 Total Bilirubin 0.4 AST 22 D ALT 25 D Alkaline Phosphatase 97 Creatine Kinase 24 L Troponin I < 0.02 B-Natriuretic Peptide 5079.38 H Total Protein 6.0 L Albumin 2.4 L 03/24/17 03/24/17 02:59 02:59 INR 1.22 H D-Dimer 981 H Sodium Potassium Chloride Carbon Dioxide Anion Gap BUN Creatinine Creat Clearance w eGFR Random Glucose Lactic Acid Calcium Total Bilirubin AST ALT Alkaline Phosphatase Creatine Kinase Troponin I B-Natriuretic Peptide Total Protein Albumin 03/24/17 02:59 RBC 4.01 D MCV 95.9 MCHC 32.4 RDW 14.1 MPV 8.0 Neutrophils % 75.9 Lymphocytes % 10.0 D Monocytes % 7.3 Eosinophils % 6.5 H D Basophils % 0.3 - RADIOLOGY Comments: VTA of chest reveals no significant pathology including pulmonary embol - Medications Given in the ED: ED Medications Discontinued Medications Generic Name Dose Route Start Last Admin Trade Name Yassine PRN Reason Stop Dose Admin Albuterol/Ipratropium 1 amp 03/24/17 02:21 03/24/17 02:50 Duoneb - NEB 03/24/17 02:22 1 amp ONCE ONE Administration Enoxaparin Sodium 40 mg 03/24/17 03:55 03/24/17 04:10 Lovenox - SQ 03/24/17 03:56 40 mg ONCE ONE Administration Furosemide 40 mg 03/24/17 04:44 03/24/17 05:27 Lasix Injection - IVPUSH 03/24/17 04:45 40 mg ONCE ONE Administration Medical Decision Making - Medical Decision Making 03/24/17 09:45 CTA chest no significant pathology for pulmonary embolism although identify COPD with emphysematous changes. Duplex studies of venous to legs show no deep vein thrombosis bilaterally will page Dr Mary for disposition. 03/24/17 09:46 03/24/17 11:05 Dr Mary here for evaluation of patiient - , CAT scan, and duplex of the legs no, pathology negative . Dr Harris has cleared patinet for dischgarge. Nurse Saida given report 3rd floor, Soni Pierson [phone] 03/24/17 11:06 03/24/17 11:17 *DC/Admit/Observation/Transfer Diagnosis at time of Disposition: Postoperative pain of extremity - Discharge Dispostion Disposition: HOME Condition at time of disposition: Stable Admit: No - Referrals Referrals: Dex Ortiz MD [Primary Care Provider] - - Patient Instructions Printed Discharge Instructions: DI for Postoperative Pain Additional Instructions: Return to group home Continue all medications as previously prescribed by Dr. Mcintyre and Dr. Ortiz - Post Discharge Activity
--- NOTE | 2017-03-24 10:33 | CONSULT ---
Consult Consult Specialty:: Internal Medicine Referred by:: Michel Reason for Consultation:: Evaluation for admission - History of Present Illness Chief Complaint: I feel fine History of Present Illness: Ms Franklin is a pleasant 76 year old female who was sent over from [facility] for evaluation of pain at the site of her hip repair. Per records she was having severe pain with minimal erythema and was sent here for further evaluation. In the ED she was given percocet and her pain was relieved. There was minimal redness noted and her D-dimer was elevated so there was concern for possible DVT/PE and failure of eliquis. CT scan with PE protocol and duplex dopplers were performed and was negative. She also had an elevated BNP so was given lasix. Upon seeing her she says she is feeling fine. She denies fevers, chills, chest pain, shortness of breath, nausea, vomiting, diarrhea, or swelling. She says she is having some pain in her right leg but that it is better currently and that overall she feels fine. 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 Cardio/Vascular: Yes: AFIB, CAD (unclear), HTN, Hyperlipdemia Pulmonary: Yes: Asthma - Past Surgical History Past Surgical History: Yes: Joint Replacement - Alcohol/Substance Use Hx Alcohol Use: No History of Substance Use: reports: None - Smoking History Smoking history: Unknown if ever smoked Have you smoked in the past 12 months: No - Social History Usual Living Arrangement: Detention ADL: Support Services History of Recent Travel: No Home Medications - Allergies Allergies/Adverse Reactions: Allergies Allergy/AdvReac Type Severity Reaction Status Date / Time ibuprofen [From Motrin] Allergy Verified 03/24/17 01:13 levofloxacin [From Levaquin] Allergy Verified 03/24/17 01:19 - Home Medications Home Medications: Ambulatory Orders Acetaminophen [Tylenol] 650 mg PO QID PRN 03/24/17 Albuterol 2.5/Ipratropium 0.5 [Duoneb -] 1 neb IH QID 03/24/17 Apixaban [Eliquis -] 2.5 mg PO BID 03/24/17 Atorvastatin Calcium [Lipitor] 30 ml PO Q6H PRN 03/24/17 Divalproex [Depakote -] 125 mg PO BID 03/24/17 Docusate Sodium [Colace -] 100 mg PO HS 03/24/17 Furosemide [Lasix -] 40 mg PO DAILY 03/24/17 Guaifenesin 100 mg PO DAILY 03/24/17 Insulin Glargine,Hum.rec.anlog [Lantus Solostar PEN (NF)] 4 units SQ HS Insulin Lispro [Humalog] 100 unit SQ TID 03/24/17 Levothyroxine [Synthroid -] 75 mcg PO DAILY 03/24/17 Lisinopril [Zestril] 2.5 mg PO DAILY 03/24/17 Lorazepam [Ativan] 0.5 mg PO QID PRN 03/24/17 Mag Hydrox/Al Hydrox/Simeth [Alpa-Lanta Liquid] 30 ml PO Q6H PRN 03/24/17 Methyl Salicylate/Menth/Camph [Bengay Ultra Strength Crm] 57 gm TP DAILY Omeprazole Magnesium [Prilosec] 20 mg PO DAILY 03/24/17 Oxycodone HCl 5 mg PO ONCE 03/24/17 Prednisone [Deltasone -] 2.5 mg PO DAILY 03/24/17 Tamsulosin HCl [Flomax] 0.4 mg PO DAILY 03/24/17 Family Disease History - Family Disease History Family History: Unable to Obtain (secondary to dementia) Review of Systems Findings/Remarks: Full review of systems obtained, as per HPI and otherwise negative Physical Exam Vital Signs: Vital Signs Temperature 97.7 F 03/24/17 07:50 Pulse Rate 103 H 03/24/17 07:50 Respiratory Rate 20 03/24/17 07:50 Blood Pressure 107/57 03/24/17 07:50 O2 Sat by Pulse Oximetry (%) 98 03/24/17 07:50 Constitutional: Yes: Well Nourished, No Distress, Calm Eyes: Yes: Conjunctiva Clear, EOM Intact HENT: Yes: Atraumatic, Normocephalic Cardiovascular: Yes: Pulse Irregular. No: Tachycardia, Gallop, Murmur, Rub Respiratory: Yes: Regular, CTA Bilaterally. No: Rales, Rhonchi, Wheezes Gastrointestinal: Yes: Normal Bowel Sounds, Soft. No: Distention, Tenderness Extremities: Yes: Erythema (minimal on RLE) Edema: No Labs: CBC, BMP 03/24/17 02:59 03/24/17 03:00 Imaging - Results Chest X-ray: Report Reviewed, Image Reviewed Cat Scan: Report Reviewed Ultrasound: Report Reviewed Problem List - Problems (1) Hip fracture Code(s): S72.009A - FRACTURE OF UNSP PART OF NECK OF UNSP FEMUR, INIT Qualifiers: Encounter type: subsequent encounter Fracture type: closed Laterality: right Fracture healing: with routine healing Qualified Code(s): S72.001D - Fracture of unspecified part of neck of right femur, subsequent encounter for closed fracture with routine healing (2) Elevated brain natriuretic peptide (BNP) level Code(s): R79.89 - OTHER SPECIFIED ABNORMAL FINDINGS OF BLOOD CHEMISTRY (3) COPD, mild Code(s): J44.9 - CHRONIC OBSTRUCTIVE PULMONARY DISEASE, UNSPECIFIED (4) Atrial fibrillation Code(s): I48.91 - UNSPECIFIED ATRIAL FIBRILLATION Qualifiers: Atrial fibrillation type: chronic Qualified Code(s): I48.2 - Chronic atrial fibrillation (5) CHF (congestive heart failure) Code(s): I50.9 - HEART FAILURE, UNSPECIFIED Qualifiers: Congestive heart failure type: diastolic Congestive heart failure chronicity: chronic Qualified Code(s): I50.32 - Chronic diastolic ( congestive) heart failure Assessment/Plan -patient presents with worsening pain that was relieved by percocet -currently pain is controlled -had elevated d-dimer, most likely secondary to recent surgery -on eliquis -no DVT or PE noted -was wheezing on presentation, but now clear to auscultation s/p duonebs -elevated BNP noted, however has clear chest x-ray and CT scan -given lasix in the ED -has history of diastolic CHF, but does not appear in exacerbation -continue home lasix dose without increase -patient is stable for transfer back to SNF without change in her medications -if continues to have pain, may benefit from CT scan of R hip to evaluate surgical site
[2017-03-24] MEDS ORDERED: OXYCODONE/APAP 5/325MG COMBO TABLET PO ONE (11:54)
[2017-03-24] MEDS ORDERED: OXYCODONE/APAP 5/325MG COMBO TABLET ONE (12:27)
--- NOTE | 2017-03-24 12:27 | EKG ---
Test Reason : Blood Pressure : / mmHG Vent. Rate : 115 BPM Atrial Rate : 115 BPM P-R Int : 142 ms QRS Dur : 076 ms QT Int : 316 ms P-R-T Axes : 074 -44 037 degrees QTc Int : 437 ms POOR DATA QUALITY, INTERPRETATION MAY BE ADVERSELY AFFECTED SINUS TACHYCARDIA PREMATURE VENTRICULAR COMPLEXES LEFT AXIS DEVIATION NONSPECIFIC T WAVE ABNORMALITY ABNORMAL ECG Confirmed by JOHN WAITE MD ([id number]) on 03/24/2017 12:26:59 PM Referred By: Confirmed By:JOHN WAITE MD
[2017-03-24 13:14] VITALS: BP 108/54; PULSE 105; TEMP 97.8
== END 2017-03-24 13:15 ==
LOC: JER 00:57
DX: G89.18 Other acute postprocedural pain (principal); S72.001D Fracture of unspecified part of neck of right femur, subsequent encounter for closed fracture with routine healing; R79.89 Other specified abnormal findings of blood chemistry; I48.2 Chronic atrial fibrillation; Z79.01 Long term (current) use of anticoagulants; I50.32 Chronic diastolic (congestive) heart failure; E11.9 Type 2 diabetes mellitus without complications; Z79.4 Long term (current) use of insulin; F03.90 Unspecified dementia, unspecified severity, without behavioral disturbance, psychotic disturbance, mood disturbance, and anxiety; J44.9 Chronic obstructive pulmonary disease, unspecified; J45.909 Unspecified asthma, uncomplicated; X58.XXXD Exposure to other specified factors, subsequent encounter
CPT/HCPCS: 36415; 71010-TC; 71275-TC; 80053; 82550; 83605; 83880; 84484; 85025; 85379; 85610; 87040; 93005; 93010; 93970-TC; 99284-25

== ENCOUNTER 2017-04-27 10:35 | Inpatient (IN) | payer OTHER ==
[2017-04-27] MEDS ORDERED: morphine CARPU-JECT 2 MG/1 ML DISP.SYRIN IVPUSH ONE ×3 (10:49→13:54)
--- NOTE | 2017-04-27 10:50 | PDOC ---
History of Present Illness - History of Present Illness Initial Comments: 04/27/17 10:51 The patient is a 76 year old female, with a significant past medical history of afib (on Eliquis) COPD, asthma, CHF, HTN, dementia who presents to the emergency department via ems from [facility] for evaluation of left hip fracture on preliminary xray read from images taken yesterday. The patient reports pain to the inside of her hip. She denies chest pain, shortness of breath, headache and dizziness. She denies fever, chills, nausea, vomit, diarrhea and constipation. She denies dysuria, frequency, urgency and hematuria. Allergies: ibuprofen and levofloxacin Past surgical history: right hip hemiarthroplasty s/p fracture (03/18/17) <Jamilah Mcgee - Last Filed: 04/27/17 11:03> <Kandice Castellanos - Last Filed: 04/29/17 17:25> - General Stated Complaint: FALL Time Seen by Provider: 04/27/17 10:40 Past History <Jamilah Mcgee - Last Filed: 04/27/17 11:03> - Past Medical History Asthma: Yes Cardiac Disorders: Yes (afib, CAD) COPD: Yes CHF: Yes Dementia: Yes Diabetes: Yes HTN: Yes Hypercholesterolemia: Yes - Surgical History Abdominal Surgery: Yes Cholecystectomy: Yes Neurologic Surgery: Yes (rt hip repair) Orthopedic Surgery: Yes - Immunization History Immunization Up to Date: Yes - Psycho/Social/Smoking Cessation Hx Anxiety: No Suicidal Ideation: No Smoking History: Unknown if ever smoked Have you smoked in the past 12 months: No Hx Alcohol Use: No Drug/Substance Use Hx: No Substance Use Type: None Hx Substance Use Treatment: No <Kandice Castellanos - Last Filed: 04/29/17 17:25> - Past Medical History Allergies/Adverse Reactions: Allergies Allergy/AdvReac Type Severity Reaction Status Date / Time ibuprofen [From Motrin] Allergy Verified 04/27/17 10:49 levofloxacin [From Levaquin] Allergy Verified 04/27/17 10:49 Home Medications: Ambulatory Orders Acetaminophen [Tylenol] 650 mg PO Q6H PRN 03/24/17 Albuterol 2.5/Ipratropium 0.5 [Duoneb -] 1 amp NEB QID 03/24/17 Apixaban [Eliquis -] 2.5 mg PO BID 03/24/17 Atorvastatin Calcium [Lipitor] 30 mg PO 2100 03/24/17 Divalproex [Depakote -] 125 mg PO BID 03/24/17 Docusate Sodium [Colace -] 100 mg PO HS 03/24/17 Furosemide [Lasix -] 40 mg PO DAILY 03/24/17 Guaifenesin 100 mg PO DAILY 03/24/17 Insulin Glargine,Hum.rec.anlog [Lantus Solostar PEN (NF)] 4 units SQ HS Insulin Lispro [Humalog] 0 unit SQ TID PRN 03/24/17 Levothyroxine [Synthroid -] 75 mcg PO DAILY 03/24/17 Lisinopril [Zestril] 2.5 mg PO DAILY 03/24/17 Lorazepam [Ativan] 0.5 mg PO Q6H PRN 03/24/17 Mag Hydrox/Al Hydrox/Simeth [Alpa-Lanta Liquid] 30 ml PO Q6H PRN 03/24/17 Methyl Salicylate/Menth/Camph [Bengay Ultra Strength Crm] 57 gm TP DAILY Omeprazole Magnesium [Prilosec] 20 mg PO DAILY 03/24/17 Oxycodone HCl 5 mg PO Q6H PRN 03/24/17 Prednisone [Deltasone -] 2.5 mg PO DAILY 03/24/17 Tamsulosin HCl [Flomax] 0.4 mg PO DAILY 03/24/17 Ascorbate Calcium [Vitamin C] 500 mg PO BID 04/27/17 Ferrous Sulfate 325 mg PO BID 04/27/17 Oxycodone Sr [Oxycontin] 10 mg PO DAILY 04/27/17 Review of Systems - Review of Systems Able to Perform ROS?: Yes (limited due to dementia) Comments:: 04/27/17 10:51 GENERAL/CONSTITUTIONAL: No fever or chills. No weakness. HEAD, EYES, EARS, NOSE AND THROAT: No change in vision. No ear pain or discharge. No sore throat. CARDIOVASCULAR: No chest pain or shortness of breath. RESPIRATORY: No cough, wheezing, or hemoptysis. GASTROINTESTINAL: No nausea, vomiting, diarrhea or constipation. GENITOURINARY: No dysuria, frequency, or change in urination. MUSCULOSKELETAL: (+) left hip pain. No joint or muscle swelling. No neck or back pain. SKIN: No rash NEUROLOGIC: No headache, vertigo, loss of consciousness, or change in strength/ sensation. ENDOCRINE: No increased thirst. No abnormal weight change. HEMATOLOGIC/LYMPHATIC: No anemia, easy bleeding, or history of blood clots. ALLERGIC/IMMUNOLOGIC: No hives or skin allergy. <Jamilah Mcgee - Last Filed: 04/27/17 11:03> *Physical Exam - Vital Signs Last Vital Signs Temp Pulse Resp BP Pulse Ox 97.7 F 100 H 20 103/46 100 04/27/17 10:35 04/27/17 10:35 04/27/17 10:35 04/27/17 10:35 04/27/17 10:35 <Jamilah Mcgee - Last Filed: 04/27/17 11:03> - Physical Exam Comments: GENERAL: Awake, alert. Oriented to person, but not place or time. Appears in obvious discomfort. HEAD: No signs of trauma EYES: PERRLA, EOMI, sclera anicteric, conjunctiva clear ENT: Auricles normal inspection, hearing grossly normal, nares patent, oropharynx clear without exudates. Moist mucosa NECK: Normal ROM, supple, no lymphadenopathy, JVD, or masses LUNGS: Breath sounds equal, clear to auscultation bilaterally. No wheezes, and no crackles HEART: Regular rate and rhythm, normal S1 and S2, no murmurs, rubs or gallops ABDOMEN: Soft, nontender, normoactive bowel sounds. No guarding, no rebound. No masses EXTREMITIES: Patient holding her lower extremities in position. With tenderness to B/L hips. Dec ROM due to pain. Upper extremities with normal range of motion, no edema. No clubbing or cyanosis. No cords, erythema, or tenderness NEUROLOGICAL: Cranial nerves II through XII grossly intact. Normal speech. Motor and sensation grossly intact. SKIN: Warm, Dry, normal turgor, no rashes or lesions noted. <Kandice Castellanos - Last Filed: 04/29/17 17:25> ED Treatment Course - LABORATORY CBC & Chemistry Diagram: 04/29/17 07:00 04/29/17 07:00 <Kandice Castellanos - Last Filed: 04/29/17 17:25> Medical Decision Making - Medical Decision Making Pt was send to ED by NH based on suspected fx on outpatient XR. CT no acute findings, however, patient required 6 mg morphine for pain, still crying intermittently. She is also noted to have intermittent hacking cough c/w bronchitis. D/w Dr. Mary, will admit for pain control and start on abx for bronchitis. <Kandice Castellanos - Last Filed: 04/29/17 17:25> *DC/Admit/Observation/Transfer - Attestations Scribe Attestion: 04/27/17 11:03 Documentation prepared by Jamilah Mcgee, acting as medical scientist for Kandice Castellanos MD <Jamilah Mcgee - Last Filed: 04/27/17 11:03> - Discharge Dispostion Admit: Yes <Kandice Castellanos - Last Filed: 04/29/17 17:25> Diagnosis at time of Disposition: Postoperative pain of extremity, Bronchitis - Discharge Dispostion Condition at time of disposition: Stable - Referrals
[2017-04-27] MEDS ORDERED: morphine CARPU-JECT 4 MG/1 ML DISP.SYRIN ONE ×3 (10:53→13:55)
[2017-04-27 11:09] VITALS: BMI 19.9
[2017-04-27 11:24] LABS: BASOPHIL 1.1 % (0-2.0); EOSINOPHIL 2.7 % (0-4.5); MCH 30.9 pg (25.7-33.7); MEAN CELL VOLUME 93.8 fl (80-96); MEAN PLT VOLUME 8.5 fl (7.5-11.1); NEUTROPHILS 74.1 % (42.8-82.8); PLATELET COUNT 203 K/MM3 (134-434); RDW 15.4 % (11.6-15.6)
[2017-04-27 11:41] LABS: ALBUMIN 3.2 g/dl (3.4-5.0); ALK PHOS 62 U/L (45-117); ANION GAP 6 (8-16); BILIRUBIN,TOTAL 0.5 mg/dL (0.2-1.0); CALCIUM 9.2 mg/dL (8.5-10.1); CO2 38 mmol/L (21-32); CREATININE 0.4 mg/dL (0.55-1.02); GLUCOSE,RANDOM 129 mg/dL (74-106); SGPT/ALT 14 U/L (12-78); TOT PROT 6.6 g/dl (6.4-8.2)
[2017-04-27 11:42] LABS: SGOT/AST 27 U/L (15-37)
[2017-04-27 12:01] LABS: INR 1.09 (0.82-1.09)
[2017-04-27 14:00] LABS: URINE APPEARANCE CLEAR; URINE BILIRUBIN NEGATIVE (NEGATIVE); URINE BLOOD NEGATIVE (NEGATIVE); URINE COLOR YELLOW; URINE GLUCOSE (UA) NEGATIVE (NEGATIVE); URINE KETONE NEGATIVE (NEGATIVE); URINE LEUK ESTERASE NEGATIVE (NEGATIVE); URINE NITRITE NEGATIVE (NEGATIVE); URINE PROTEIN NEGATIVE (NEGATIVE); URINE UROBILINOGEN NEGATIVE mg/dL (0.2-1.0)
[2017-04-27] MEDS ORDERED: AZITHROMYCIN IVPB 500 MG in DEXTROSE 5%-WATER - 250 ML IVPB ONE (14:19)
[2017-04-27] MEDS ORDERED: ONDANSETRON 4 MG/2 ML VIAL IVPB PRN (14:36)
[2017-04-27] MEDS ORDERED: morphine CARPU-JECT 2 MG/1 ML DISP.SYRIN IVPUSH PRN (14:36)
--- NOTE | 2017-04-27 14:40 | HP ---
Admitting History and Physical - Primary Care Physician PCP: Dex Ortiz - Admission Chief Complaint: I feel fine History of Present Illness: Ms Franklin is a 76 year old female from [facility] who comes in with fall. I am seeing patient and she says she is feeling fine. She denies fevers, chills, chest pain, shortness of breath, coughing, abdominal pain, falls, or limb pain. However per her medical record she fell today. Also she was crying in pain when I first entered the ER and is s/p morphine. She was also coughing as well. 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 Cardiovascular: Yes: AFIB, CAD (unclear), HTN, Hyperlipdemia Pulmonary: Yes: Asthma - Past Surgical History Past Surgical History: Yes: Joint Replacement - Smoking History Smoking history: Unknown if ever smoked Have you smoked in the past 12 months: No - Alcohol/Substance Use Hx Alcohol Use: No History of Substance Use: reports: None - Social History Usual Living Arrangement: Yes: Detention ADL: Support Services History of Recent Travel: No Home Medications - Allergies Allergies/Adverse Reactions: Allergies Allergy/AdvReac Type Severity Reaction Status Date / Time ibuprofen [From Motrin] Allergy Verified 04/27/17 10:49 levofloxacin [From Levaquin] Allergy Verified 04/27/17 10:49 - Home Medications Home Medications: Ambulatory Orders Acetaminophen [Tylenol] 650 mg PO QID PRN 03/24/17 Albuterol 2.5/Ipratropium 0.5 [Duoneb -] 1 neb IH QID 03/24/17 Apixaban [Eliquis -] 2.5 mg PO BID 03/24/17 Atorvastatin Calcium [Lipitor] 30 ml PO Q6H PRN 03/24/17 Divalproex [Depakote -] 125 mg PO BID 03/24/17 Docusate Sodium [Colace -] 100 mg PO HS 03/24/17 Furosemide [Lasix -] 40 mg PO DAILY 03/24/17 Guaifenesin 100 mg PO DAILY 03/24/17 Insulin Glargine,Hum.rec.anlog [Lantus Solostar PEN (NF)] 4 units SQ HS Insulin Lispro [Humalog] 100 unit SQ TID 03/24/17 Levothyroxine [Synthroid -] 75 mcg PO DAILY 03/24/17 Lisinopril [Zestril] 2.5 mg PO DAILY 03/24/17 Lorazepam [Ativan] 0.5 mg PO QID PRN 03/24/17 Mag Hydrox/Al Hydrox/Simeth [Alpa-Lanta Liquid] 30 ml PO Q6H PRN 03/24/17 Methyl Salicylate/Menth/Camph [Bengay Ultra Strength Crm] 57 gm TP DAILY Omeprazole Magnesium [Prilosec] 20 mg PO DAILY 03/24/17 Oxycodone HCl 5 mg PO ONCE 03/24/17 Prednisone [Deltasone -] 2.5 mg PO DAILY 03/24/17 Tamsulosin HCl [Flomax] 0.4 mg PO DAILY 03/24/17 Family Disease History - Family Disease History Family History: Unable to Obtain Review of Systems Findings/Remarks: Per HPI and otherwise negative, but received morphine and is not accurate secondary to this Physical Examination Vital Signs: Vital Signs Temperature 97.7 F 04/27/17 10:35 Pulse Rate 100 H 04/27/17 10:35 Respiratory Rate 20 04/27/17 10:35 Blood Pressure 103/46 04/27/17 10:35 O2 Sat by Pulse Oximetry (%) 100 04/27/17 10:35 Constitutional: Yes: No Distress, Calm, Thin Eyes: Yes: Conjunctiva Clear, EOM Intact, PERRL HENT: Yes: Atraumatic, Normocephalic Cardiovascular: Yes: Pulse Irregular. No: Tachycardia, Gallop, Murmur, Rub Respiratory: Yes: Regular, CTA Bilaterally, Cough. No: Rales, Rhonchi, Wheezes Gastrointestinal: Yes: Normal Bowel Sounds, Soft. No: Distention, Tenderness Extremities: Yes: WNL Edema: No Labs: Laboratory Results - last 24 hr 04/27/17 04/27/17 04/27/17 11:10 11:10 11:10 WBC 7.0 D RBC 3.62 Hgb 11.2 Hct 34.0 MCV 93.8 MCH 30.9 MCHC 33.0 RDW 15.4 Plt Count 203 MPV 8.5 Neutrophils % 74.1 Lymphocytes % 15.0 D Monocytes % 7.1 Eosinophils % 2.7 Basophils % 1.1 D INR 1.09 Sodium 139 Potassium 4.6 Chloride 95 L Carbon Dioxide 38 H Anion Gap 6 L BUN 13 D Creatinine 0.4 L Creat Clearance w eGFR > 60 Random Glucose 129 H Calcium 9.2 Total Bilirubin 0.5 D AST 27 D ALT 14 D Alkaline Phosphatase 62 D Total Protein 6.6 Albumin 3.2 L D Urine Color Urine Appearance Urine pH Urine Protein Urine Glucose (UA) Urine Ketones Urine Blood Urine Nitrite Urine Bilirubin Urine Urobilinogen Ur Leukocyte Esterase Blood Type Antibody Screen 04/27/17 04/27/17 11:10 13:35 WBC RBC Hgb Hct MCV MCH MCHC RDW Plt Count MPV Neutrophils % Lymphocytes % Monocytes % Eosinophils % Basophils % INR Sodium Potassium Chloride Carbon Dioxide Anion Gap BUN Creatinine Creat Clearance w eGFR Random Glucose Calcium Total Bilirubin AST ALT Alkaline Phosphatase Total Protein Albumin Urine Color Yellow Urine Appearance Clear Urine pH 6.0 Urine Protein Negative Urine Glucose (UA) Negative Urine Ketones Negative Urine Blood Negative Urine Nitrite Negative Urine Bilirubin Negative Urine Urobilinogen Negative Ur Leukocyte Esterase Negative Blood Type B POSITIVE Antibody Screen Negative Imaging - Results Chest X-ray: Report Reviewed, Image Reviewed Cat Scan: Report Reviewed Problem List - Problems (1) Fall Assessment/Plan: -patient presets with fall -x-ray and CT scan showing no fracture -however will consult orhto for further evaluation Code(s): W19.XXXA - UNSPECIFIED FALL, INITIAL ENCOUNTER Qualifiers: Encounter type: initial encounter Qualified Code(s): W19.XXXA - Unspecified fall, initial encounter (2) Hip pain Assessment/Plan: -patient with pain prior to seeing in exam -received morphine 6mg before controlled -consult ortho -continue morphine for pain control Code(s): M25.559 - PAIN IN UNSPECIFIED HIP (3) CHF (congestive heart failure) Assessment/Plan: -not in exacerbation -continue lasix -will gently hydrate in case patient has decreased po intake Code(s): I50.9 - HEART FAILURE, UNSPECIFIED Qualifiers: Congestive heart failure type: diastolic Congestive heart failure chronicity: chronic Qualified Code(s): I50.32 - Chronic diastolic ( congestive) heart failure (4) COPD, mild Assessment/Plan: -with cough -continue home regimen -monitor Code(s): J44.9 - CHRONIC OBSTRUCTIVE PULMONARY DISEASE, UNSPECIFIED (5) GERD (gastroesophageal reflux disease) Assessment/Plan: -continue PPI Code(s): K21.9 - GASTRO-ESOPHAGEAL REFLUX DISEASE WITHOUT ESOPHAGITIS (6) HLD (hyperlipidemia) Assessment/Plan: -continue statin Code(s): E78.5 - HYPERLIPIDEMIA, UNSPECIFIED (7) Type II diabetes mellitus Assessment/Plan: -diabetic diet -place on SSI Code(s): E11.9 - TYPE 2 DIABETES MELLITUS WITHOUT COMPLICATIONS Qualifiers: Diabetes mellitus complication status: with hyperglycemia Diabetes mellitus lobsterman insulin use: without nursing home use Qualified Code(s): E11.65 - Type 2 diabetes mellitus with hyperglycemia; Z79.4 - 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
[2017-04-27] MEDS ORDERED: AZITHROMYCIN IVPB 250 ML IVPB ONE (15:29)
[2017-04-27] MEDS: INSULIN SLIDING SCALE (NOVOLOG) 1 VIAL SQ SCH ×2 (17:07→21:36)
[2017-04-27] MEDS: SODIUM CHLORIDE 1,000 ML IV SCH (17:11)
[2017-04-27] MEDS: ALBUTEROL SO4 2.5/IPRATROPIUM 0.5 INH SOL 3 ML VIAL.NEB. NEB SCH (18:21)
[2017-04-27] MEDS: DOCUSATE SODIUM 100 MG CAPSULE (FP) PO SCH (21:31)
[2017-04-27] MEDS: ATORVASTATIN CA 10 MG TABLET (FP) PO SCH (21:31)
[2017-04-27] MEDS: morphine CARPU-JECT 4 MG/1 ML DISP.SYRIN IVPUSH PRN (21:32)
[2017-04-27] MEDS ORDERED: DOCUSATE SODIUM 100 MG CAPSULE (FP) PO SCH (22:00)
[2017-04-27] MEDS: DIVALPROEX SODIUM 125 MG TABLET E.C. (FP) PO SCH (22:17)
[2017-04-27] MEDS: APIXABAN 2.5 MG TABLET PO SCH (22:17)
[2017-04-28] MEDS: ALBUTEROL SO4 2.5/IPRATROPIUM 0.5 INH SOL 3 ML VIAL.NEB. NEB SCH ×4 (00:28→18:57)
[2017-04-28] MEDS: morphine CARPU-JECT 4 MG/1 ML DISP.SYRIN IVPUSH PRN ×3 (04:12→20:14)
[2017-04-28] MEDS: ACETAMINOPHEN 325 MG TABLET (FP) PO PRN ×2 (06:24→21:00)
[2017-04-28] MEDS: LEVOTHYROXINE NA 75 MCG TABLET (FP) PO SCH (06:24)
[2017-04-28] MEDS: INSULIN SLIDING SCALE (NOVOLOG) 1 VIAL SQ SCH ×4 (06:24→21:32)
[2017-04-28 07:41] LABS: BASOPHIL 0.9 % (0-2.0); EOSINOPHIL 3.9 % (0-4.5); MCH 31.3 pg (25.7-33.7); MCHC 33.6 g/dl (32.0-36.0); MEAN CELL VOLUME 93.1 fl (80-96); MEAN PLT VOLUME 8.6 fl (7.5-11.1); NEUTROPHILS 66.2 % (42.8-82.8); PLATELET COUNT 172 K/MM3 (134-434); RDW 15.1 % (11.6-15.6)
[2017-04-28 08:17] LABS: ANION GAP 7 (8-16); CALCIUM 8.8 mg/dL (8.5-10.1); CO2 34 mmol/L (21-32); CREATININE 0.3 mg/dL (0.55-1.02); GLUCOSE,RANDOM 88 mg/dL (74-106); MAGNESIUM 2.2 mg/dL (1.8-2.4); PHOSPHOROUS 3.8 mg/dL (2.5-4.9)
[2017-04-28] MEDS ORDERED: PT OWN MED DRAWER 7, Y5N ONE (09:23)
[2017-04-28] MEDS: guaiFENesin 200 MG/10 ML 10 ML UNIT-DOSE CUPS PO SCH (09:24)
[2017-04-28] MEDS: predniSONE 5 MG TABLET (UD) PO SCH (09:25)
[2017-04-28] MEDS: LISINOPRIL 5 MG TABLET (FP) PO SCH (09:26)
[2017-04-28] MEDS: TAMSULOSIN HCL 0.4 MG CAP.ER.24H (FP) PO SCH (09:26)
[2017-04-28] MEDS: DOCUSATE SODIUM 100 MG CAPSULE (FP) PO SCH ×2 (09:26→21:27)
[2017-04-28] MEDS: PANTOPRAZOLE 20 MG TABLET (FP) PO SCH (09:26)
[2017-04-28] MEDS: FUROSEMIDE 40 MG TABLET (FP) PO SCH (09:26)
[2017-04-28] MEDS: APIXABAN 2.5 MG TABLET PO SCH ×2 (09:27→21:27)
[2017-04-28] MEDS: DIVALPROEX SODIUM 125 MG TABLET E.C. (FP) PO SCH ×2 (09:27→21:27)
[2017-04-28] MEDS: METHYL SALICYLATE/MENTHOL OINT 30 GM TUBE TP SCH (09:28)
[2017-04-28] MEDS: POLYETHYLENE GLYCOL 3350 119 GM BTL PO SCH (09:28)
[2017-04-28] MEDS ORDERED: predniSONE 2.5 MG TABLET PO SCH (10:00)
--- NOTE | 2017-04-28 10:47 | PN ---
Progress Note (short form) - Note Progress Note: Pt seen and examined. She is a 76 yo F pt s/p fall, with c/o pain in the right hemipelvis. She is able to ambulate, but with pain. PE B/L LE are grossly NVI. Good ROM throughout, including both hips, knees, ankle, feet, toes. Passive ROM of the right hip is painful for her. No signs of hip dislocation. Full ROM possible. No signs of acute trauma. No swelling. Xrays and CT scan of the pelvis shows a Right THR and L hip ORIF all in good position, no acute bony pathology. Imp 76 yo F s/p fall with a right hip contusion, no fracture or dislocation. Rec P.T., ambulation, WBAT. Can DC/transfer to SNF from an ortho pov
--- NOTE | 2017-04-28 14:14 | PN ---
Progress Note, Physician Chief Complaint: Ms Franklin says she is doing well. No pain. RN says patient was up walking earlier, but was complaining of pain and crying. Recently received morphine prior to me seeing. - Current Medication List Current Medications: Active Medications Acetaminophen (Tylenol -) 650 mg PO Q4H PRN PRN Reason: FEVER OR PAIN Last Admin: 04/28/17 06:24 Dose: 650 mg Al Hydroxide/Mg Hydroxide (Mylanta Oral Suspension -) 30 ml PO Q6H PRN PRN Reason: DYSPEPSIA Albuterol/Ipratropium (Duoneb -) 1 amp NEB QIDR [facility] Last Admin: 04/28/17 11:36 Dose: Not Given Apixaban (Eliquis -) 2.5 mg PO BID [facility] Last Admin: 04/28/17 09:27 Dose: 2.5 mg Atorvastatin Calcium (Lipitor -) 10 mg PO HS [facility] Last Admin: 04/27/17 21:31 Dose: 10 mg Divalproex Sodium (Depakote -) 125 mg PO BID [facility] Last Admin: 04/28/17 09:27 Dose: 125 mg Docusate Sodium (Colace -) 100 mg PO BID [facility] Last Admin: 04/28/17 09:26 Dose: 100 mg Furosemide (Lasix -) 40 mg PO DAILY [facility] Last Admin: 04/28/17 09:26 Dose: 40 mg Guaifenesin (Robitussin -) 5 ml PO DAILY [facility] Last Admin: 04/28/17 09:24 Dose: 5 ml Sodium Chloride (Normal Saline -) 1,000 mls @ 42 mls/hr IV ASDIR [facility] Last Admin: 04/27/17 17:11 Dose: 42 mls/hr Insulin Aspart (Novolog Vial Sliding Scale -) 1 vial SQ ACHS [facility] PRN Reason: Protocol Last Admin: 04/28/17 11:54 Dose: Not Given Levothyroxine Sodium (Synthroid -) 75 mcg PO DAILY@0700 [facility] Last Admin: 04/28/17 06:24 Dose: 75 mcg Lisinopril (Prinivil) 2.5 mg PO DAILY [facility] Last Admin: 04/28/17 09:26 Dose: 2.5 mg Methyl Salicylate (Sergey-Vega -) 1 applic TP DAILY [facility] Last Admin: 04/28/17 09:28 Dose: 1 applic Morphine Sulfate (Morphine Injection -) 2 mg IVPUSH Q4H PRN PRN Reason: PAIN Last Admin: 04/28/17 13:35 Dose: 2 mg Ondansetron HCl (Zofran Injection) 4 mg IVPB Q6H PRN PRN Reason: NAUSEA Pantoprazole Sodium (Protonix -) 20 mg PO DAILY [facility] Last Admin: 04/28/17 09:26 Dose: 20 mg Polyethylene Glycol (Miralax (For Daily Use) -) 17 gm PO DAILY [facility] Last Admin: 04/28/17 09:28 Dose: 17 grams Prednisone (Deltasone -) 2.5 mg PO DAILY [facility] Last Admin: 04/28/17 09:25 Dose: 2.5 mg Tamsulosin HCl (Flomax -) 0.4 mg PO DAILY [facility] Last Admin: 04/28/17 09:26 Dose: 0.4 mg - Objective Vital Signs: Vital Signs Temperature 97.6 F 04/28/17 14:04 Pulse Rate 96 H 04/28/17 14:04 Respiratory Rate 20 04/28/17 08:00 Blood Pressure 100/47 04/28/17 14:04 O2 Sat by Pulse Oximetry (%) 97 04/28/17 09:00 Constitutional: Yes: Well Nourished, No Distress, Calm Cardiovascular: Yes: Pulse Irregular. No: Tachycardia, Gallop, Murmur, Rub Respiratory: Yes: Regular, CTA Bilaterally. No: Rales, Rhonchi, Wheezes Gastrointestinal: Yes: Normal Bowel Sounds, Soft. No: Distention, Tenderness Extremities: Yes: WNL Edema: No Labs: CBC, BMP 04/28/17 06:20 04/28/17 06:20 INR, PTT INR 1.09 (0.82-1.09) 04/27/17 11:10 Problem List - Problems (1) Fall Code(s): W19.XXXA - UNSPECIFIED FALL, INITIAL ENCOUNTER Qualifiers: Encounter type: initial encounter Qualified Code(s): W19.XXXA - Unspecified fall, initial encounter (2) Hip pain Code(s): M25.559 - PAIN IN UNSPECIFIED HIP (3) CHF (congestive heart failure) Code(s): I50.9 - HEART FAILURE, UNSPECIFIED Qualifiers: Congestive heart failure type: diastolic Congestive heart failure chronicity: chronic Qualified Code(s): I50.32 - Chronic diastolic ( congestive) heart failure (4) COPD, mild Code(s): J44.9 - CHRONIC OBSTRUCTIVE PULMONARY DISEASE, UNSPECIFIED (5) GERD (gastroesophageal reflux disease) Code(s): K21.9 - GASTRO-ESOPHAGEAL REFLUX DISEASE WITHOUT ESOPHAGITIS (6) HLD (hyperlipidemia) Code(s): E78.5 - HYPERLIPIDEMIA, UNSPECIFIED (7) Type II diabetes mellitus Code(s): E11.9 - TYPE 2 DIABETES MELLITUS WITHOUT COMPLICATIONS Qualifiers: Diabetes mellitus complication status: with hyperglycemia Diabetes mellitus group home insulin use: without group home use Qualified Code(s): E11.65 - Type 2 diabetes mellitus with hyperglycemia; Z79.4 - group home (current ) use of insulin (8) Atrial fibrillation Code(s): I48.91 - UNSPECIFIED ATRIAL FIBRILLATION Qualifiers: Atrial fibrillation type: chronic Qualified Code(s): I48.2 - Chronic atrial fibrillation (9) Hypothyroidism Code(s): E03.9 - HYPOTHYROIDISM, UNSPECIFIED Assessment/Plan (1) Fall Assessment/Plan: -continue fall precautions -PT seeing Code(s): W19.XXXA - UNSPECIFIED FALL, INITIAL ENCOUNTER Qualifiers: Encounter type: initial encounter Qualified Code(s): W19.XXXA - Unspecified fall, initial encounter (2) Hip pain Assessment/Plan: -improved today -appreciate ortho assistance -continue PT -will attempt to control with oxycodone Code(s): M25.559 - PAIN IN UNSPECIFIED HIP (3) CHF (congestive heart failure) Assessment/Plan: -not in exacerbation -continue lasix -continue gentle hydration -tolerating diet, stop IVF tomorrow Code(s): I50.9 - HEART FAILURE, UNSPECIFIED Qualifiers: Congestive heart failure type: diastolic Congestive heart failure chronicity: chronic Qualified Code(s): I50.32 - Chronic diastolic ( congestive) heart failure (4) COPD, mild Assessment/Plan: -with cough -continue home regimen -monitor Code(s): J44.9 - CHRONIC OBSTRUCTIVE PULMONARY DISEASE, UNSPECIFIED (5) GERD (gastroesophageal reflux disease) Assessment/Plan: -continue PPI Code(s): K21.9 - GASTRO-ESOPHAGEAL REFLUX DISEASE WITHOUT ESOPHAGITIS (6) HLD (hyperlipidemia) Assessment/Plan: -continue statin Code(s): E78.5 - HYPERLIPIDEMIA, UNSPECIFIED (7) Type II diabetes mellitus Assessment/Plan: -diabetic diet -place on SSI Code(s): E11.9 - TYPE 2 DIABETES MELLITUS WITHOUT COMPLICATIONS Qualifiers: Diabetes mellitus complication status: with hyperglycemia Diabetes mellitus group home insulin use: without group home use Qualified Code(s): E11.65 - Type 2 diabetes mellitus with hyperglycemia; Z79.4 - group home (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
[2017-04-28] MEDS: SODIUM CHLORIDE 1,000 ML IV SCH (20:15)
[2017-04-28] MEDS: ATORVASTATIN CA 10 MG TABLET (FP) PO SCH (21:27)
[2017-04-29] MEDS: ALBUTEROL SO4 2.5/IPRATROPIUM 0.5 INH SOL 3 ML VIAL.NEB. NEB SCH ×4 (00:02→17:32)
[2017-04-29] MEDS: morphine CARPU-JECT 4 MG/1 ML DISP.SYRIN IVPUSH PRN ×2 (00:29→05:34)
[2017-04-29] MEDS: INSULIN SLIDING SCALE (NOVOLOG) 1 VIAL SQ SCH ×4 (05:59→21:21)
[2017-04-29] MEDS: LEVOTHYROXINE NA 75 MCG TABLET (FP) PO SCH (05:59)
[2017-04-29 09:13] LABS: BASOPHIL 0.8 % (0-2.0); EOSINOPHIL 3.3 % (0-4.5); MCH 30.8 pg (25.7-33.7); MCHC 32.7 g/dl (32.0-36.0); MEAN CELL VOLUME 94.2 fl (80-96); MEAN PLT VOLUME 8.7 fl (7.5-11.1); PLATELET COUNT 171 K/MM3 (134-434); RDW 15.9 % (11.6-15.6); WHITE BLOOD COUNT 4.2 K/mm3 (4.0-10.0)
[2017-04-29] MEDS ORDERED: PT OWN MED DRAWER 7, Y5N ONE (10:42)
[2017-04-29] MEDS: TAMSULOSIN HCL 0.4 MG CAP.ER.24H (FP) PO SCH (10:43)
[2017-04-29] MEDS: PANTOPRAZOLE 20 MG TABLET (FP) PO SCH (10:43)
[2017-04-29] MEDS: DOCUSATE SODIUM 100 MG CAPSULE (FP) PO SCH ×2 (10:44→21:24)
[2017-04-29] MEDS: LISINOPRIL 5 MG TABLET (FP) PO SCH (10:44)
[2017-04-29] MEDS: FUROSEMIDE 40 MG TABLET (FP) PO SCH (10:44)
[2017-04-29] MEDS: predniSONE 5 MG TABLET (UD) PO SCH (10:44)
[2017-04-29] MEDS: DIVALPROEX SODIUM 125 MG TABLET E.C. (FP) PO SCH ×2 (10:45→21:25)
[2017-04-29] MEDS: APIXABAN 2.5 MG TABLET PO SCH ×2 (10:45→21:24)
[2017-04-29] MEDS: guaiFENesin 200 MG/10 ML 10 ML UNIT-DOSE CUPS PO SCH (10:46)
[2017-04-29] MEDS: POLYETHYLENE GLYCOL 3350 119 GM BTL PO SCH (10:48)
[2017-04-29 13:50] LABS: ANION GAP 8 (8-16); CALCIUM 8.5 mg/dL (8.5-10.1); CO2 32 mmol/L (21-32); CREATININE 0.4 mg/dL (0.55-1.02); GLUCOSE,RANDOM 180 mg/dL (74-106); MAGNESIUM 2.1 mg/dL (1.8-2.4); PHOSPHOROUS 2.9 mg/dL (2.5-4.9)
--- NOTE | 2017-04-29 13:57 | PN ---
Progress Note, Physician Chief Complaint: Ms Franklin is without complaint. No cp, sob, n/v. - Current Medication List Current Medications: Active Medications Acetaminophen (Tylenol -) 650 mg PO Q4H PRN PRN Reason: FEVER OR PAIN Last Admin: 04/28/17 21:00 Dose: 650 mg Al Hydroxide/Mg Hydroxide (Mylanta Oral Suspension -) 30 ml PO Q6H PRN PRN Reason: DYSPEPSIA Albuterol/Ipratropium (Duoneb -) 1 amp NEB QIDR [facility] Last Admin: 04/29/17 11:10 Dose: 1 amp Apixaban (Eliquis -) 2.5 mg PO BID [facility] Last Admin: 04/29/17 10:45 Dose: 2.5 mg Atorvastatin Calcium (Lipitor -) 10 mg PO HS [facility] Last Admin: 04/28/17 21:27 Dose: 10 mg Divalproex Sodium (Depakote -) 125 mg PO BID [facility] Last Admin: 04/29/17 10:45 Dose: 125 mg Docusate Sodium (Colace -) 100 mg PO BID [facility] Last Admin: 04/29/17 10:44 Dose: 100 mg Furosemide (Lasix -) 40 mg PO DAILY [facility] Last Admin: 04/29/17 10:44 Dose: 40 mg Guaifenesin (Robitussin -) 5 ml PO DAILY [facility] Last Admin: 04/29/17 10:46 Dose: 5 ml Sodium Chloride (Normal Saline -) 1,000 mls @ 42 mls/hr IV ASDIR [facility] Last Admin: 04/28/17 20:15 Dose: 42 mls/hr Insulin Aspart (Novolog Vial Sliding Scale -) 1 vial SQ ACHS [facility] PRN Reason: Protocol Last Admin: 04/29/17 11:32 Dose: Not Given Levothyroxine Sodium (Synthroid -) 75 mcg PO DAILY@0700 [facility] Last Admin: 04/29/17 05:59 Dose: 75 mcg Lisinopril (Prinivil) 2.5 mg PO DAILY [facility] Last Admin: 04/29/17 10:44 Dose: 2.5 mg Methyl Salicylate (Sergey-Vega -) 1 applic TP DAILY [facility] Last Admin: 04/28/17 09:28 Dose: 1 applic Ondansetron HCl (Zofran Injection) 4 mg IVPB Q6H PRN PRN Reason: NAUSEA Oxycodone HCl (Roxicodone -) 5 mg PO Q4H PRN PRN Reason: PAIN Pantoprazole Sodium (Protonix -) 20 mg PO DAILY [facility] Last Admin: 04/29/17 10:43 Dose: 20 mg Polyethylene Glycol (Miralax (For Daily Use) -) 17 gm PO DAILY [facility] Last Admin: 04/29/17 10:48 Dose: Not Given Prednisone (Deltasone -) 2.5 mg PO DAILY [facility] Last Admin: 04/29/17 10:44 Dose: 2.5 mg Tamsulosin HCl (Flomax -) 0.4 mg PO DAILY [facility] Last Admin: 04/29/17 10:43 Dose: 0.4 mg - Objective Vital Signs: Vital Signs Temperature 98.4 F 04/29/17 09:09 Pulse Rate 90 04/29/17 09:09 Respiratory Rate 20 04/29/17 09:09 Blood Pressure 115/50 04/29/17 09:09 O2 Sat by Pulse Oximetry (%) 92 L 04/29/17 09:00 Constitutional: Yes: Well Nourished, No Distress, Calm Cardiovascular: Yes: Pulse Irregular. No: Tachycardia, Gallop, Murmur, Rub Respiratory: Yes: Regular, CTA Bilaterally. No: Rales, Rhonchi, Wheezes Gastrointestinal: Yes: Normal Bowel Sounds, Soft. No: Distention, Tenderness Extremities: Yes: WNL Edema: No Labs: CBC, BMP 04/29/17 07:00 04/29/17 07:00 INR, PTT INR 1.09 (0.82-1.09) 04/27/17 11:10 Problem List - Problems (1) Fall Code(s): W19.XXXA - UNSPECIFIED FALL, INITIAL ENCOUNTER Qualifiers: Encounter type: initial encounter Qualified Code(s): W19.XXXA - Unspecified fall, initial encounter (2) Hip pain Code(s): M25.559 - PAIN IN UNSPECIFIED HIP (3) CHF (congestive heart failure) Code(s): I50.9 - HEART FAILURE, UNSPECIFIED Qualifiers: Congestive heart failure type: diastolic Congestive heart failure chronicity: chronic Qualified Code(s): I50.32 - Chronic diastolic ( congestive) heart failure (4) COPD, mild Code(s): J44.9 - CHRONIC OBSTRUCTIVE PULMONARY DISEASE, UNSPECIFIED (5) GERD (gastroesophageal reflux disease) Code(s): K21.9 - GASTRO-ESOPHAGEAL REFLUX DISEASE WITHOUT ESOPHAGITIS (6) HLD (hyperlipidemia) Code(s): E78.5 - HYPERLIPIDEMIA, UNSPECIFIED (7) Type II diabetes mellitus Code(s): E11.9 - TYPE 2 DIABETES MELLITUS WITHOUT COMPLICATIONS Qualifiers: Diabetes mellitus complication status: with hyperglycemia Diabetes mellitus intermediate teacher insulin use: without skilled nursing use Qualified Code(s): E11.65 - Type 2 diabetes mellitus with hyperglycemia; Z79.4 - termite control service representative (current ) use of insulin (8) Atrial fibrillation Code(s): I48.91 - UNSPECIFIED ATRIAL FIBRILLATION Qualifiers: Atrial fibrillation type: chronic Qualified Code(s): I48.2 - Chronic atrial fibrillation (9) Hypothyroidism Code(s): E03.9 - HYPOTHYROIDISM, UNSPECIFIED Assessment/Plan (1) Fall Assessment/Plan: -continue fall precautions -PT seeing Code(s): W19.XXXA - UNSPECIFIED FALL, INITIAL ENCOUNTER Qualifiers: Encounter type: initial encounter Qualified Code(s): W19.XXXA - Unspecified fall, initial encounter (2) Hip pain Assessment/Plan: -improved -stop morphine -continue oxycodone Code(s): M25.559 - PAIN IN UNSPECIFIED HIP (3) CHF (congestive heart failure) Assessment/Plan: -continue lasix -stop IVF Code(s): I50.9 - HEART FAILURE, UNSPECIFIED Qualifiers: Congestive heart failure type: diastolic Congestive heart failure chronicity: chronic Qualified Code(s): I50.32 - Chronic diastolic ( congestive) heart failure (4) COPD, mild Assessment/Plan: -with cough -continue home regimen -monitor Code(s): J44.9 - CHRONIC OBSTRUCTIVE PULMONARY DISEASE, UNSPECIFIED (5) GERD (gastroesophageal reflux disease) Assessment/Plan: -continue PPI Code(s): K21.9 - GASTRO-ESOPHAGEAL REFLUX DISEASE WITHOUT ESOPHAGITIS (6) HLD (hyperlipidemia) Assessment/Plan: -continue statin Code(s): E78.5 - HYPERLIPIDEMIA, UNSPECIFIED (7) Type II diabetes mellitus Assessment/Plan: -diabetic diet -place on SSI Code(s): E11.9 - TYPE 2 DIABETES MELLITUS WITHOUT COMPLICATIONS Qualifiers: Diabetes mellitus complication status: with hyperglycemia Diabetes mellitus intermediate teacher insulin use: without skilled nursing use Qualified Code(s): E11.65 - Type 2 diabetes mellitus with hyperglycemia; Z79.4 - half-way (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 Dispo -possible discharge tomorrow back to [facility]
[2017-04-29] MEDS: METHYL SALICYLATE/MENTHOL OINT 30 GM TUBE TP SCH (14:39)
[2017-04-29] MEDS: MAG HYDROX/AL HYDROX/SIMETH 30 ML UNIT-DOSE CUP PO PRN (16:28)
[2017-04-29] MEDS: ATORVASTATIN CA 10 MG TABLET (FP) PO SCH (21:24)
[2017-04-29] MEDS: oxyCODONE HCL 5 MG TABLET PO PRN (21:24)
[2017-04-30] MEDS: ALBUTEROL SO4 2.5/IPRATROPIUM 0.5 INH SOL 3 ML VIAL.NEB. NEB SCH ×4 (00:05→18:19)
[2017-04-30] MEDS: oxyCODONE HCL 5 MG TABLET PO PRN ×4 (02:22→21:19)
[2017-04-30] MEDS: MAG HYDROX/AL HYDROX/SIMETH 30 ML UNIT-DOSE CUP PO PRN (04:00)
[2017-04-30] MEDS: ACETAMINOPHEN 325 MG TABLET (FP) PO PRN ×2 (04:00→19:07)
[2017-04-30] MEDS: INSULIN SLIDING SCALE (NOVOLOG) 1 VIAL SQ SCH ×4 (06:05→21:16)
[2017-04-30] MEDS: LEVOTHYROXINE NA 75 MCG TABLET (FP) PO SCH (06:05)
[2017-04-30] MEDS: PANTOPRAZOLE 20 MG TABLET (FP) PO SCH (09:50)
[2017-04-30] MEDS: DOCUSATE SODIUM 100 MG CAPSULE (FP) PO SCH ×2 (09:50→21:19)
[2017-04-30] MEDS: FUROSEMIDE 40 MG TABLET (FP) PO SCH (09:50)
[2017-04-30] MEDS: TAMSULOSIN HCL 0.4 MG CAP.ER.24H (FP) PO SCH (09:50)
[2017-04-30] MEDS: APIXABAN 2.5 MG TABLET PO SCH ×2 (09:50→21:20)
[2017-04-30] MEDS: predniSONE 5 MG TABLET (UD) PO SCH (09:50)
[2017-04-30] MEDS: LISINOPRIL 5 MG TABLET (FP) PO SCH (09:51)
[2017-04-30] MEDS: DIVALPROEX SODIUM 125 MG TABLET E.C. (FP) PO SCH ×2 (09:53→21:20)
[2017-04-30] MEDS: guaiFENesin 200 MG/10 ML 10 ML UNIT-DOSE CUPS PO SCH (10:11)
[2017-04-30] MEDS: METHYL SALICYLATE/MENTHOL OINT 30 GM TUBE TP SCH (10:11)
[2017-04-30] MEDS: POLYETHYLENE GLYCOL 3350 119 GM BTL PO SCH (11:17)
[2017-04-30] MEDS ORDERED: INSULIN (NOVOLOG) ASPART 100 UNITS/ML 10ML VIAL ONE (11:53)
--- NOTE | 2017-04-30 17:05 | PN ---
Progress Note (short form) - Note Progress Note: No complaints Continues to have pain O/E Vital Signs Period Temp Pulse Resp BP Sys/Ramos Pulse Ox Last 24 Hr 98 F-98.6 F 88-102 20-20 117-120/58-90 94-96 Current Medications Acetaminophen (Tylenol -) 650 mg PO Q4H PRN PRN Reason: FEVER OR PAIN Last Admin: 04/30/17 04:00 Dose: 650 mg Al Hydroxide/Mg Hydroxide (Mylanta Oral Suspension -) 30 ml PO Q6H PRN PRN Reason: DYSPEPSIA Last Admin: 04/30/17 04:00 Dose: 30 ml Albuterol/Ipratropium (Duoneb -) 1 amp NEB QIDR [facility] Last Admin: 04/30/17 12:35 Dose: 1 amp Apixaban (Eliquis -) 2.5 mg PO BID [facility] Last Admin: 04/30/17 09:50 Dose: 2.5 mg Atorvastatin Calcium (Lipitor -) 10 mg PO HS [facility] Last Admin: 04/29/17 21:24 Dose: 10 mg Divalproex Sodium (Depakote -) 125 mg PO BID [facility] Last Admin: 04/30/17 09:53 Dose: 125 mg Docusate Sodium (Colace -) 100 mg PO BID [facility] Last Admin: 04/30/17 09:50 Dose: 100 mg Furosemide (Lasix -) 40 mg PO DAILY [facility] Last Admin: 04/30/17 09:50 Dose: 40 mg Guaifenesin (Robitussin -) 5 ml PO DAILY [facility] Last Admin: 04/30/17 10:11 Dose: 5 ml Insulin Aspart (Novolog Vial Sliding Scale -) 1 vial SQ ACHS [facility] PRN Reason: Protocol Last Admin: 04/30/17 11:55 Dose: 2 unit Levothyroxine Sodium (Synthroid -) 75 mcg PO DAILY@0700 [facility] Last Admin: 04/30/17 06:05 Dose: 75 mcg Lisinopril (Prinivil) 2.5 mg PO DAILY [facility] Last Admin: 04/30/17 09:51 Dose: 2.5 mg Methyl Salicylate (Sergey-Vega -) 1 applic TP DAILY [facility] Last Admin: 04/30/17 10:11 Dose: 1 applic Ondansetron HCl (Zofran Injection) 4 mg IVPB Q6H PRN PRN Reason: NAUSEA Oxycodone HCl (Roxicodone -) 5 mg PO Q4H PRN PRN Reason: PAIN Last Admin: 04/30/17 13:59 Dose: 5 mg Pantoprazole Sodium (Protonix -) 20 mg PO DAILY [facility] Last Admin: 04/30/17 09:50 Dose: 20 mg Polyethylene Glycol (Miralax (For Daily Use) -) 17 gm PO DAILY [facility] Last Admin: 04/30/17 11:17 Dose: 17 grams Prednisone (Deltasone -) 2.5 mg PO DAILY [facility] Last Admin: 04/30/17 09:50 Dose: 2.5 mg Tamsulosin HCl (Flomax -) 0.4 mg PO DAILY [facility] Last Admin: 04/30/17 09:50 Dose: 0.4 mg Vital Signs Period Temp Pulse Resp BP Sys/Ramos Pulse Ox Last 24 Hr 98 F-98.6 F 88-102 20-20 117-120/58-90 94-96 Laboratory Results - last 24 hr 04/29/17 04/29/17 04/30/17 16:45 21:19 05:44 POC Glucometer 132 131 124 04/30/17 11:49 POC Glucometer 157 Heart irregular Lungs clear Abd soft Ext no edema A&P Assessment/Plan (1) Fall Assessment/Plan: -continue fall precautions Discharge planing Code(s): W19.XXXA - UNSPECIFIED FALL, INITIAL ENCOUNTER Qualifiers: Encounter type: initial encounter Qualified Code(s): W19.XXXA - Unspecified fall, initial encounter (2) Hip pain Assessment/Plan: -improved -Cont prn pain meds -continue oxycodone Code(s): M25.559 - PAIN IN UNSPECIFIED HIP (3) CHF (congestive heart failure) Assessment/Plan: -resolved Code(s): I50.9 - HEART FAILURE, UNSPECIFIED Qualifiers: Congestive heart failure type: diastolic Congestive heart failure chronicity: chronic Qualified Code(s): I50.32 - Chronic diastolic ( congestive) heart failure (4) COPD, mild Assessment/Plan: -cont present meds Code(s): J44.9 - CHRONIC OBSTRUCTIVE PULMONARY DISEASE, UNSPECIFIED (5) GERD (gastroesophageal reflux disease) Assessment/Plan: -continue PPI Code(s): K21.9 - GASTRO-ESOPHAGEAL REFLUX DISEASE WITHOUT ESOPHAGITIS (6) HLD (hyperlipidemia) Assessment/Plan: -continue statin Code(s): E78.5 - HYPERLIPIDEMIA, UNSPECIFIED (7) Type II diabetes mellitus Assessment/Plan: -diabetic diet -place on [facility] Code(s): E11.9 - TYPE 2 DIABETES MELLITUS WITHOUT COMPLICATIONS Qualifiers: Diabetes mellitus complication status: with hyperglycemia Diabetes mellitus terminal operator insulin use: without terminal operator use Qualified Code(s): E11.65 - Type 2 diabetes mellitus with hyperglycemia; Z79.4 - bed bug exterminator (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 Patient could be discharged and will arrange [facility] for discharge
--- NOTE | 2017-04-30 18:13 | PN ---
Progress Note (short form) - Note Progress Note: Pt seen and examined. She is doing well, min c/o pain. No orthopedic cjanges. Can DC/transfer from an orthopedic pov
[2017-04-30] MEDS: ATORVASTATIN CA 10 MG TABLET (FP) PO SCH (21:19)
[2017-05-01] MEDS: ALBUTEROL SO4 2.5/IPRATROPIUM 0.5 INH SOL 3 ML VIAL.NEB. NEB SCH ×4 (00:06→17:47)
[2017-05-01] MEDS: oxyCODONE HCL 5 MG TABLET PO PRN ×4 (05:17→23:53)
[2017-05-01] MEDS: ACETAMINOPHEN 325 MG TABLET (FP) PO PRN ×3 (05:18→18:43)
[2017-05-01] MEDS: LEVOTHYROXINE NA 75 MCG TABLET (FP) PO SCH (06:09)
[2017-05-01] MEDS: INSULIN SLIDING SCALE (NOVOLOG) 1 VIAL SQ SCH ×4 (06:09→21:01)
[2017-05-01] MEDS: METHYL SALICYLATE/MENTHOL OINT 30 GM TUBE TP SCH (10:11)
[2017-05-01] MEDS: predniSONE 5 MG TABLET (UD) PO SCH (10:12)
[2017-05-01] MEDS: TAMSULOSIN HCL 0.4 MG CAP.ER.24H (FP) PO SCH (10:12)
[2017-05-01] MEDS: DOCUSATE SODIUM 100 MG CAPSULE (FP) PO SCH ×2 (10:12→21:00)
[2017-05-01] MEDS: APIXABAN 2.5 MG TABLET PO SCH ×2 (10:12→21:00)
[2017-05-01] MEDS: DIVALPROEX SODIUM 125 MG TABLET E.C. (FP) PO SCH ×2 (10:12→21:00)
[2017-05-01] MEDS: LISINOPRIL 5 MG TABLET (FP) PO SCH (10:13)
[2017-05-01] MEDS: FUROSEMIDE 40 MG TABLET (FP) PO SCH (10:13)
[2017-05-01] MEDS: guaiFENesin 200 MG/10 ML 10 ML UNIT-DOSE CUPS PO SCH (10:14)
[2017-05-01] MEDS: PANTOPRAZOLE 20 MG TABLET (FP) PO SCH (10:14)
[2017-05-01] MEDS ORDERED: INSULIN (NOVOLOG) ASPART 100 UNITS/ML 10ML VIAL ONE (10:43)
[2017-05-01] MEDS: POLYETHYLENE GLYCOL 3350 119 GM BTL PO SCH (16:19)
--- NOTE | 2017-05-01 17:48 | PN ---
Progress Note (short form) - Note Progress Note: The pain is better and has no new complaints O/E Laboratory Results - last 24 hr 04/30/17 05/01/17 05/01/17 20:44 06:00 11:53 POC Glucometer 133 137 122 05/01/17 16:30 POC Glucometer 114 Current Medications Acetaminophen (Tylenol -) 650 mg PO Q4H PRN PRN Reason: FEVER OR PAIN Last Admin: 05/01/17 11:55 Dose: 650 mg Al Hydroxide/Mg Hydroxide (Mylanta Oral Suspension -) 30 ml PO Q6H PRN PRN Reason: DYSPEPSIA Last Admin: 04/30/17 04:00 Dose: 30 ml Albuterol/Ipratropium (Duoneb -) 1 amp NEB QIDR [facility] Last Admin: 05/01/17 11:53 Dose: 1 amp Apixaban (Eliquis -) 2.5 mg PO BID [facility] Last Admin: 05/01/17 10:12 Dose: 2.5 mg Atorvastatin Calcium (Lipitor -) 10 mg PO HS [facility] Last Admin: 04/30/17 21:19 Dose: 10 mg Divalproex Sodium (Depakote -) 125 mg PO BID [facility] Last Admin: 05/01/17 10:12 Dose: 125 mg Docusate Sodium (Colace -) 100 mg PO BID [facility] Last Admin: 05/01/17 10:12 Dose: 100 mg Furosemide (Lasix -) 40 mg PO DAILY [facility] Last Admin: 05/01/17 10:13 Dose: 40 mg Guaifenesin (Robitussin -) 5 ml PO DAILY [facility] Last Admin: 05/01/17 10:14 Dose: 5 ml Insulin Aspart (Novolog Vial Sliding Scale -) 1 vial SQ ACHS [facility] PRN Reason: Protocol Last Admin: 05/01/17 16:31 Dose: Not Given Levothyroxine Sodium (Synthroid -) 75 mcg PO DAILY@0700 [facility] Last Admin: 05/01/17 06:09 Dose: 75 mcg Lisinopril (Prinivil) 2.5 mg PO DAILY [facility] Last Admin: 05/01/17 10:13 Dose: 2.5 mg Methyl Salicylate (Sergey-Vega -) 1 applic TP DAILY [facility] Last Admin: 05/01/17 10:11 Dose: 1 applic Ondansetron HCl (Zofran Injection) 4 mg IVPB Q6H PRN PRN Reason: NAUSEA Oxycodone HCl (Roxicodone -) 5 mg PO Q4H PRN PRN Reason: PAIN Last Admin: 05/01/17 11:56 Dose: 5 mg Pantoprazole Sodium (Protonix -) 20 mg PO DAILY [facility] Last Admin: 05/01/17 10:14 Dose: 20 mg Polyethylene Glycol (Miralax (For Daily Use) -) 17 gm PO DAILY [facility] Last Admin: 05/01/17 16:19 Dose: Not Given Prednisone (Deltasone -) 2.5 mg PO DAILY [facility] Last Admin: 05/01/17 10:12 Dose: 2.5 mg Tamsulosin HCl (Flomax -) 0.4 mg PO DAILY [facility] Last Admin: 05/01/17 10:12 Dose: 0.4 mg Vital Signs Period Temp Pulse Resp BP Sys/Ramos Pulse Ox Last 24 Hr 97.7 F-98.2 F 87-91 18-20 111-118/54-68 95-96 Heart irregular Lungs clear Abd soft Ext no edema Assessment/Plan (1) Fall Assessment/Plan: -continue fall precautions Discharge planing Code(s): W19.XXXA - UNSPECIFIED FALL, INITIAL ENCOUNTER Qualifiers: Encounter type: initial encounter Qualified Code(s): W19.XXXA - Unspecified fall, initial encounter (2) Hip pain Assessment/Plan: -improved, Ortho noted and shall discharge home -Cont prn pain meds -continue oxycodone Code(s): M25.559 - PAIN IN UNSPECIFIED HIP (3) CHF (congestive heart failure) Assessment/Plan: -resolved Code(s): I50.9 - HEART FAILURE, UNSPECIFIED Qualifiers: Congestive heart failure type: diastolic Congestive heart failure chronicity: chronic Qualified Code(s): I50.32 - Chronic diastolic ( congestive) heart failure (4) COPD, mild Assessment/Plan: -cont present meds Code(s): J44.9 - CHRONIC OBSTRUCTIVE PULMONARY DISEASE, UNSPECIFIED (5) GERD (gastroesophageal reflux disease) Assessment/Plan: -continue PPI Code(s): K21.9 - GASTRO-ESOPHAGEAL REFLUX DISEASE WITHOUT ESOPHAGITIS (6) HLD (hyperlipidemia) Assessment/Plan: -continue statin Code(s): E78.5 - HYPERLIPIDEMIA, UNSPECIFIED (7) Type II diabetes mellitus Assessment/Plan: -diabetic diet -place on SSI Code(s): E11.9 - TYPE 2 DIABETES MELLITUS WITHOUT COMPLICATIONS Qualifiers: Diabetes mellitus complication status: with hyperglycemia Diabetes mellitus fish roe processor insulin use: without fish roe processor use Qualified Code(s): E11.65 - Type 2 diabetes mellitus with hyperglycemia; Z79.4 - detention (current ) use of insulin (8) Atrial fibrillation Assessment/Plan: -rate controlled -continue eliquis Code(s): I48.91 - UNSPECIFIED ATRIAL FIBRILLATION Qualifiers: Atrial fibrillation type: chronic Qualified Code(s): I48.2 - Chronic atrial fibrillation (9) Hypothyroidism
[2017-05-01] MEDS: ATORVASTATIN CA 10 MG TABLET (FP) PO SCH (21:00)
[2017-05-02] MEDS: ALBUTEROL SO4 2.5/IPRATROPIUM 0.5 INH SOL 3 ML VIAL.NEB. NEB SCH ×2 (00:09→06:40)
[2017-05-02] MEDS: oxyCODONE HCL 5 MG TABLET PO PRN (06:12)
[2017-05-02] MEDS: LEVOTHYROXINE NA 75 MCG TABLET (FP) PO SCH (06:12)
[2017-05-02] MEDS: INSULIN SLIDING SCALE (NOVOLOG) 1 VIAL SQ SCH (06:13)
--- NOTE | 2017-05-02 09:07 | PN ---
Progress Note (short form) - Note Progress Note: Ortho Pt seen and examined- no complaints decr pain, incr rom, nvi a/p PT if able dvt ppx NTD d/c planning d/w Dr. Apodaca
[2017-05-02] MEDS ORDERED: PT OWN MED DRAWER 7, Y5N ONE (10:24)
[2017-05-02] MEDS: guaiFENesin 200 MG/10 ML 10 ML UNIT-DOSE CUPS PO SCH (10:26)
[2017-05-02] MEDS: FUROSEMIDE 40 MG TABLET (FP) PO SCH (10:27)
[2017-05-02] MEDS: TAMSULOSIN HCL 0.4 MG CAP.ER.24H (FP) PO SCH (10:27)
[2017-05-02] MEDS: DOCUSATE SODIUM 100 MG CAPSULE (FP) PO SCH (10:27)
[2017-05-02] MEDS: PANTOPRAZOLE 20 MG TABLET (FP) PO SCH (10:27)
[2017-05-02] MEDS: LISINOPRIL 5 MG TABLET (FP) PO SCH (10:27)
[2017-05-02] MEDS: predniSONE 5 MG TABLET (UD) PO SCH (10:28)
[2017-05-02] MEDS: APIXABAN 2.5 MG TABLET PO SCH (10:29)
[2017-05-02] MEDS: DIVALPROEX SODIUM 125 MG TABLET E.C. (FP) PO SCH (10:29)
[2017-05-02] MEDS: POLYETHYLENE GLYCOL 3350 119 GM BTL PO SCH (10:35)
[2017-05-02] MEDS: METHYL SALICYLATE/MENTHOL OINT 30 GM TUBE TP SCH (10:36)
[2017-05-02 10:49] VITALS: BP 121/68; PULSE 89; TEMP 98.1
== END 2017-05-02 11:03 | DRG 556 ==
LOC: JER 10:35 → JERBED 14:18 → J6S 15:44
PROVIDERS: ADMIT Internal Medicine; ATTEND Internal Medicine
DX: M25.552 Pain in left hip (principal); I50.32 Chronic diastolic (congestive) heart failure; S70.01XA Contusion of right hip, initial encounter; W19.XXXA Unspecified fall, initial encounter; Y93.9 Activity, unspecified; Y92.89 Other specified places as the place of occurrence of the external cause; Y99.9 Unspecified external cause status; J44.9 Chronic obstructive pulmonary disease, unspecified; K21.9 Gastro-esophageal reflux disease without esophagitis; E78.5 Hyperlipidemia, unspecified; I48.2 Chronic atrial fibrillation; E03.9 Hypothyroidism, unspecified; E11.65 Type 2 diabetes mellitus with hyperglycemia
CPT/HCPCS: 36415; 71010-TC; 72192-TC; 73700-TC-RT; 80048; 80053; 81003; 83735; 84100; 85025; 85610; 86850; 86900; 86901; 87086; 94010; 94640; 97116-GP; 97161-GP; 99281-25